=== PATIENT | male | born 1975 | race Two or more races ===

== ENCOUNTER 2021-10-09 13:28 | Emergency (ER) | payer OTHER, SELFPAY ==
[2021-10-09 16:03] VITALS: BP 118/88; PULSE 78; RESP 18; TEMP 37.2; O2SAT 97; BMI 31.0
--- NOTE | 2021-10-09 16:28 | ED.GENADULT ---
HPI - General Adult General Chief complaint: General Medical Stated complaint: SORE THROAT HEADACHE FEVER Time Seen by Provider: 10/09/21 16:27 Source: patient and family Mode of arrival: ambulatory Limitations: no limitations History of Present Illness HPI narrative: 46-year-old male came in for evaluation of sore throat, runny nose, allergy like symptoms. Symptoms started about week ago, no sick contact, patient received 2 vaccinations for COVID this year, declined any fever or chills. No coughing. Related Data Allergies Allergy/AdvReac Type Severity Reaction Status Date / Time No Known Allergies Allergy Verified 10/09/21 16:08 Review of Systems Review of Systems: All other systems are reviewed and are negative Constitutional: Reports as per HPI and Reports no additional constitutional complaints Eyes: Reports as per HPI and Reports no additional eye complaints Reports system reviewed and no additional complaints, except as documented Cardiovascular: Reports as per HPI and Reports no additional cardiovascular complaints Respiratory: Reports as per HPI and Reports no additional respiratory complaints Gastrointestinal: Reports as per HPI and Reports no additional gastrointestinal complaints Genitourinary: Reports no additional female genitourinary complaints Musculoskeletal: Reports no additional musculoskeletal complaints Skin/Breast: Reports system reviewed and no additional complaints, except as docu Psychiatric: Reports no additional psychiatric complaints Endocrine: Reports no additional endocrine complaints Hematologic/Lymphatic: Reports no additional hematologic/lymphatic complaints Allergic/Immunologic: Reports no additional allergic/immunologic complaints Reports system reviewed and no additional complaints, except as documented and Reports Abnormal speech present [facility] Social History Social History Advance Directives: No Advance Directives Information Provided: No Physical Exam Vital Signs: Vital Signs: Last Vital Signs Temp 99 F 10/09/21 16:03 Pulse 78 10/09/21 16:03 Resp 18 10/09/21 16:03 BP 118/88 10/09/21 16:03 Pulse Ox 97 10/09/21 16:03 Body Mass Index 31.0 Vital signs have been reviewed as appeared to be correct. Blood pressure normal. Heart rate normal. Respiration rate normal. Temperature normal. Oxygen saturation normal. Appearance: Alert. Oriented X3. No acute distress. Head: Normal external exam. Normocephalic. Atraumatic. No Bennett signs noted. No raccoon eyes noted Eyes: PERRLA. EOMI. Conjunctiva and sclera normal. Eyelids normal. ENT: TM's Normal. Pharynx normal. Uvula midline. Moist mucous membranes. No trismus noted. No drooling noted. No muffled voice noted. Neck: Normal inspection. Neck supple. FROM. No adenopathy. Thyroid Normal. No meningeal signs. No neck mass noted. CVS: Normal heart rate and rhythm. Heart sound normal. No murmurs noted. Pulses normal throughout. Respiratory: No respiratory distress. Painless inspiration. Breath sounds normal. No wheezes/rales/rhonchi noted. Chest nontender. No accessory muscle usage noted or decreased air movement noted. Abdomen: Soft and nontender. Bowel sounds normal in all 4 quadrants. No distention noted. No organomegaly noted. No visible injury noted. Back: No CVA tenderness. Full range of motion noted. Skin: Skin warm and dry. Normal skin color. Normal skin turgor. No rashes/lesions/lacerations noted. Extremities: No lower extremity edema. Extremities exhibit normal range of motion. Extremities nontender. Neuro: Oriented X 3. Cranial nerve exam: II-XII are grossly intact No motor deficit. No sensory deficit. Reflexes normal. Course Course Course Narrative: Assessment and plan. 46-year-old male came in with runny nose, sore throat, patient is known to have environmental allergies that he developed every year when the weather changes. Will reassure and follow-up with PCP. Discharge Plan Discharge Clinical Impression: Pharyngitis Patient Disposition: Home, Self-Care Instructions: Pharyngitis (ED) Referrals: Physician,Jabari Geronimo [Physician] - 2 days
[2021-10-09 16:45] LABS: Strep A Nucleic Acid Negative (Negative)
== END 2021-10-09 17:31 | disposition home or self-care (01) ==
PROVIDERS: Emergency Provider Emergency Medicine
DX: J02.9 Acute pharyngitis, unspecified (principal)
CPT/HCPCS: 36415; 87651; 99283

== ENCOUNTER 2022-03-01 23:25 | Emergency (ER) | payer OTHER, SELFPAY ==
[2022-03-01 23:38] VITALS: BP 118/73; PULSE 87; RESP 15; TEMP 36.8; O2SAT 99; BMI 31.8
[2022-03-02 00:03] LABS: MANUAL DIFF FLAG NO
[2022-03-02 00:07] LABS: Basophils Percent Auto 0.5 % (0-2); Eosinophils Absolute Auto 0.7 X10*3/uL (0.0-0.4); Eosinophils Percent Auto 9.4 % (0-4); Hematocrit 43.5 % (42.0-52.0); Hemoglobin 14.3 g/dl (14.0-18.0); Imm Gran Abs Auto 0.02 X10*3/uL (0.00-0.03); Imm Gran Pct Auto 0.3 % (0.0-0.4); Lymphocytes Absolute Auto 2.5 X10*3/uL (1.2-4.9); Lymphocytes Percent Auto 32.4 % (20-40); Mean Corpuscular HGB Conc 32.9 g/dl (31.0-36.0); Mean Corpuscular Hemoglobin 29.5 pg (27.0-33.0); Mean Corpuscular Volume 89.7 fL (80.0-98.0); Mean Platelet Volume 10.4 fL (9.4-12.4); Monocytes Absolute Auto 0.8 X10*3/uL (0.1-1.2); Monocytes Percent Auto 10.3 % (2-11); Neutrophils Absolute Auto 3.7 x10*3/uL (2.0-8.3); Neutrophils Percent Auto 47.1 % (45-73); Platelet Count 264 X10*3/uL (160-400); Red Blood Count 4.85 X10*6/uL (4.60-5.80); Red Cell Distribution Width 13.2 % (11.0-16.0); White Blood Count 7.8 X10*3/uL (4.8-10.8)
[2022-03-02 00:18] LABS: COVID-19 Test Positive (Negative); IDNOW Serial# 55D5AD1C
[2022-03-02 00:21] LABS: Influenza A Negative (Negative); Influenza B2 Negative (Negative)
[2022-03-02 00:23] LABS: Alanine Aminotransferase 44 U/L (0-40); Albumin Level 3.9 g/dL (3.5-5.0); Alkaline Phosphatase 89 U/L (39-117); Anion Gap 13 (12-20); Aspartate Amino Transferase 29 U/L (5-37); Bilirubin Total 0.3 mg/dL (0.0-1.0); Blood Urea Nitrogen 14 mg/dL (9-16); Calcium 9.1 mg/dL (8.4-10.2); Carbon Dioxide 26 mmol/L (22-29); Chloride 108 mmol/L (96-108); Creatinine Clr Calc Pharmacy 107.5; Estimated Glomerular Filt Rate > 60; Glucose Random 114 mg/dL (60-115); Potassium 3.9 mmol/L (3.3-5.1); Sodium 143 mmol/L (135-145)
[2022-03-02 01:00] VITALS: BP 119/72; PULSE 74; RESP 22; O2SAT 97
--- NOTE | 2022-03-02 01:50 | ED_ITS ---
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 He patient also states that he felt feverish and had body aches. He otherwise denies shortness of breath, GI or symptoms. Related Data Allergies Allergy/AdvReac Type Severity Reaction Status Date / Time No Known Allergies Allergy Verified 10/09/21 16:08 Review of Systems Review of Systems: Pertinent positives and negatives as stated in HPI 10 point review of systems is otherwise negative. [facility] Past Medical History Source: nursing notes reviewed Social History Social History Advance Directives: No Advance Directives Information Provided: Yes Physical Exam ED Vital Signs: Vital Signs - 24 hr 03/01/22 23:38 03/02/22 01:00 Temperature 98.3 F Pulse Rate 87 74 Respiratory Rate 15 22 H Blood Pressure 118/73 119/72 Pulse Oximetry 99 97 BMI result Body Mass Index 31.8 VITAL SIGNS: Reviewed. GENERAL: Well developed, well nourished, in no acute distress. HEAD: Normocephalic/atraumatic EYES: PERRLA, EOMI EARS: Ext canals without abnormality, TMs non-bulging and non-erythematous NOSE: Nares patent bilateral OROPHARYNX: no oral lesions noted, posterior pharynx clear and non-erythematous without noted tonsillar enlargement/erythema/exudates NECK: Supple, no adenopathy LUNGS: Normal breath sounds. No adventitious sounds or accessory muscle use. SpO2<99> CARDIOVASCULAR: Regular rate and rhythm without noted murmurs ABDOMEN: Soft, non-tender, non-distended with bowel sounds. SKIN: Inspection of the skin reveals no rashes NEUROLOGIC: Alert and oriented x 4. Strength and sensation to light touch were grossly intact x 4. Course Course Course Narrative: 46-year-old male with history and clinical presentation consistent with viral syndrome and on review of all investigations there are no acute findings other than patient being COVID-19 positive. Patient was informed of all findings and is discharged home in stable condition with instructions to self quarantine and he is not tachypneic, tachycardic, nor shortness of breath and patient is oxygenating well on room air. Medical Decision Making Lab Data Result diagrams: 03/01/22 23:55 03/01/22 23:55 Labs: Lab Results 03/01/22 03/01/22 03/01/22 Range/Units 23:55 23:55 23:55 WBC 7.8 (4.8-10.8) X10*3/uL RBC 4.85 (4.60-5.80) X10*6/uL Hgb 14.3 (14.0-18.0) g/dl Hct 43.5 (42.0-52.0) % MCV 89.7 (80.0-98.0) fL MCH 29.5 (27.0-33.0) pg MCHC 32.9 (31.0-36.0) g/dl RDW 13.2 (11.0-16.0) % Plt Count 264 (160-400) X10*3/uL MPV 10.4 (9.4-12.4) fL Immature Gran % (Auto) 0.3 (0.0-0.4) % Neut % (Auto) 47.1 (45-73) % Lymph % (Auto) 32.4 (20-40) % Bulloch % (Auto) 10.3 (2-11) % Eos % (Auto) 9.4 H (0-4) % Baso % (Auto) 0.5 (0-2) % Lymph # (Auto) 2.5 (1.2-4.9) X10*3/uL Bulloch # (Auto) 0.8 (0.1-1.2) X10*3/uL Eos # (Auto) 0.7 H (0.0-0.4) X10*3/uL Baso # (Auto) 0.0 (0.0-0.2) X10*3/uL Abs Immat Gran (auto) 0.02 (0.00-0.03) X10*3/uL Absolute Neuts (auto) 3.7 (2.0-8.3) x10*3/uL Absolute Nucleated RBC 0.000 (0.0-0.012) X10*3/uL Nucleated RBC % (auto) 0.0 (0.0-0.2) /100WBC Sodium (135-145) mmol/L Potassium (3.3-5.1) mmol/L Chloride (96-108) mmol/L Carbon Dioxide (22-29) mmol/L Anion Gap (12-20) BUN (9-16) mg/dL Creatinine (0.5-1.4) mg/dL Estim Creat Clear Calc Estimated GFR Random Glucose (60-115) mg/dL Calcium (8.4-10.2) mg/dL Total Bilirubin (0.0-1.0) mg/dL AST (5-37) U/L ALT (0-40) U/L Alkaline Phosphatase (39-117) U/L Total Protein (6.5-8.0) g/dL Albumin (3.5-5.0) g/dL COVID-19 (HETAL) Positive A (Negative) COVID-19 Clin Com See Note Influenza Type A (CARLOS) Negative (Negative) Influenza Type B (CARLOS) Negative (Negative) Influenza A & B Note See Note 03/01/22 Range/Units 23:55 WBC (4.8-10.8) X10*3/uL RBC (4.60-5.80) X10*6/uL Hgb (14.0-18.0) g/dl Hct (42.0-52.0) % MCV (80.0-98.0) fL MCH (27.0-33.0) pg MCHC (31.0-36.0) g/dl RDW (11.0-16.0) % Plt Count (160-400) X10*3/uL MPV (9.4-12.4) fL Immature Gran % (Auto) (0.0-0.4) % Neut % (Auto) (45-73) % Lymph % (Auto) (20-40) % Bulloch % (Auto) (2-11) % Eos % (Auto) (0-4) % Baso % (Auto) (0-2) % Lymph # (Auto) (1.2-4.9) X10*3/uL Bulloch # (Auto) (0.1-1.2) X10*3/uL Eos # (Auto) (0.0-0.4) X10*3/uL Baso # (Auto) (0.0-0.2) X10*3/uL Abs Immat Gran (auto) (0.00-0.03) X10*3/uL Absolute Neuts (auto) (2.0-8.3) x10*3/uL Absolute Nucleated RBC (0.0-0.012) X10*3/uL Nucleated RBC % (auto) (0.0-0.2) /100WBC Sodium 143 (135-145) mmol/L Potassium 3.9 (3.3-5.1) mmol/L Chloride 108 (96-108) mmol/L Carbon Dioxide 26 (22-29) mmol/L Anion Gap 13 (12-20) BUN 14 (9-16) mg/dL Creatinine 1.00 (0.5-1.4) mg/dL Estim Creat Clear Calc 107.5 Estimated GFR > 60 Random Glucose 114 (60-115) mg/dL Calcium 9.1 (8.4-10.2) mg/dL Total Bilirubin 0.3 (0.0-1.0) mg/dL AST 29 (5-37) U/L ALT 44 H (0-40) U/L Alkaline Phosphatase 89 (39-117) U/L Total Protein 7.0 (6.5-8.0) g/dL Albumin 3.9 (3.5-5.0) g/dL COVID-19 (HETAL) (Negative) COVID-19 Clin Com Influenza Type A (CARLOS) (Negative) Influenza Type B (CARLOS) (Negative) Influenza A & B Note Discharge Plan Discharge Clinical Impression: Viral syndrome, Lab test positive for detection of COVID-19 virus Patient Disposition: Home, Self-Care Instructions: Viral Syndrome (ED), COVID-19 (Coronavirus Disease 2019) (ED) Additional Instructions: 1. Recomendar Tylenol/ibuprofeno de venta delmer seg?n sea necesario para temperaturas superiores a 100.4, almaz corporales, almaz de jerardo. 2. Aumentar la hidrataci?n fluida, especialmente con agua. 3. Debe ponerse en cuarentena makenna los pr?ximos 14 d?as y seguir todas las pautas estatales y federales ya que le soares diagnosticado COVID 19. Regrese a la lisa de emergencias si los s?ntomas empeoran. Print Language: Mosotho
[2022-03-02] MEDS: Ketorolac Tromethamine 15 MG/ML VIAL IM (02:10)
[2022-03-02] MEDS: Acetaminophen 325 MG TABLET 975 MG PO (02:11)
== END 2022-03-02 02:28 | disposition home or self-care (01) ==
PROVIDERS: Emergency Provider Student in an Organized Health Care Education/Training Program
DX: U07.1 COVID-19 (principal); B34.9 Viral infection, unspecified; R51.9 Headache, unspecified
CPT/HCPCS: 36415; 80053; 85025; 87502; 87635; 96372; 99283; 99284; J1885

== ENCOUNTER 2022-03-12 22:15 | Emergency (ER) | payer OTHER, SELFPAY ==
--- NOTE | ~2022-03-12 | XR_ITS ---
EXAMINATION: XR CHEST CLINICAL INFORMATION: Shortness of breath COMPARISON: None TECHNIQUE: 2 views of the chest were obtained. FINDINGS: Normal symmetric lung volumes. Left basilar subsegmental atelectasis. No parenchymal consolidation. No pleural effusion. No pneumothorax. Cardiomediastinal silhouette and pulmonary vascularity are within normal limits. No acute osseous abnormalities. XR/XR chest 2V IMPRESSION: No acute findings
[2022-03-13 01:31] VITALS: BP 125/71; PULSE 71; RESP 18; O2SAT 99; BMI 31.7
[2022-03-13 01:57] LABS: COVID-19 Test Negative (Negative)
--- NOTE | 2022-03-13 02:34 | ED.URI ---
HPI - URI/Sore Throat General Chief Complaint: Upper Respiratory Symptoms Stated Complaint: +covid 4/1 headache body aches Time Seen by Provider: 03/13/22 02:34 Source: patient Mode of arrival: ambulatory Limitations: language barrier History of Present Illness HPI Narrative: History obtained with translater. Patient is COVID positive on March, patient is vaccinated with pfizer. Patient had headache, sore throat and cough. Patient is not feeling better yet. MD elicited complaint: cough and sore throat Onset (ago): day(s) Consistency: constant Severity: mild Associated symptoms: denies other symptoms Related Data Allergies Allergy/AdvReac Type Severity Reaction Status Date / Time No Known Allergies Allergy Verified 10/09/21 16:08 Review of Systems Constitutional: Constitutional: Reports no additional constitutional complaints Eyes: Eyes: Reports no additional eye complaints ENT: Denies dizziness Cardiovascular: Cardiovascular: Reports no additional cardiovascular complaints Respiratory: Respiratory: Reports as per HPI Gastrointestinal: Gastrointestinal: Reports no additional gastrointestinal complaints Musculoskeletal: Musculoskeletal: Reports no additional musculoskeletal complaints Integumentary/Breasts: Skin/Breast: Denies rash Neurologic: Reports system reviewed and no additional complaints, except as documented, Denies dizziness and Denies Sensory deficit (Neuro) Psychiatric: Psychiatric: Denies anxiety PMFSH Social History Social History Advance Directives: No Physical Exam Vital Signs: Vital Signs: Last Vital Signs Pulse 71 03/13/22 01:31 Resp 18 03/13/22 01:31 BP 125/71 03/13/22 01:31 Pulse Ox 99 03/13/22 01:31 BMI result Body Mass Index 31.7 Const: General: healthy appearing Nutritional Appearance: average body habitus Orientation/consciousness: oriented to person and patient oriented x3 Limitations: no limitations HEENT: Head: Yes normal to inspection Ears: external ears normal General nose exam: Normal external nose present Mouth: Normal oral and palatal mucosa present and oropharynx normal Throat: Yes posterior oropharynx normal Eyes: General: appearance normal, both eyes and all related structures Neck: Other: supple Neck: Yes normal visual inspection Chest: Chest palpation & inspection: normal inspection of the chest Resp: Auscultation: clear to auscultation bilaterally Cardio: Jugular venous distension: no JVD Rate: regular rate Rhythm: regular rhythm Heart sounds: S1 normal heart sound present and S2 normal heart sound present GI: Inspection: Yes normal to inspection Palpation (GI): Soft to palpation, nontender and No hepatosplenomegaly present Auscultation: normal bowel sounds : General: Yes no CVA tenderness Back/Spine/Pelvis: Back: no CVA tenderness Skin: General skin exam: no rashes or lesions noted Neuro: General: oriented to person and patient oriented x3 Cranial nerves: Yes CN's II-XII intact bilaterally Motor exam (neuro): 5/5 motor strength present throughout Sensory Exam: No Sensory deficit (Neuro) Extrem: General: Yes normal to inspection Psych: Appearance: grossly normal Course Reevaluation(s) Reevaluation #1: patient with normal vitals and physical exam, xaray is negative. will encourage fluids and tylenol and motrin as needed Time: 02:41 MDM - URI/Sore Throat Lab Data Labs: Lab Results 03/13/22 Range/Units 01:16 COVID-19 (HETAL) Negative (Negative) COVID-19 Clin Com See Note Imaging Data Chest x-ray: Radiologist's impression: FINDINGS: Normal symmetric lung volumes. Left basilar subsegmental atelectasis. No parenchymal consolidation. No pleural effusion. No pneumothorax. Cardiomediastinal silhouette and pulmonary vascularity are within normal limits. No acute osseous abnormalities. XR/XR chest 2V IMPRESSION: No acute findings Discharge Plan Discharge Clinical Impression: COVID-19 Patient Disposition: Home, Self-Care Instructions: COVID-19 (Coronavirus Disease 2019) (ED) Referrals: Physician,Jabari J [Primary Care Provider] - 1 week Stand Alone Forms: Work/School Release Interventions: LWBS Worksheet Last Done: 03/12/22 23:55
== END 2022-03-13 02:48 | disposition home or self-care (01) ==
PROVIDERS: Emergency Provider Emergency Medicine
DX: U07.1 COVID-19 (principal)
CPT/HCPCS: 71046; 87635; 99283

== ENCOUNTER 2022-04-24 00:41 | Emergency (ER) | payer OTHER, SELFPAY ==
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
[2022-04-24 01:04] VITALS: BP 124/75; PULSE 74; RESP 18; TEMP 36.6; O2SAT 97; BMI 32.3
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
[2022-04-24 01:40] VITALS: BP 106/66; PULSE 69; RESP 20; O2SAT 97
[2022-04-24] MEDS: Lidocaine 4 % Patch ADH..PATCH 1 PATCH TRANSDERMA (02:23)
[2022-04-24] MEDS: Ibuprofen 600 MG TABLET PO (02:25)
== END 2022-04-24 03:21 | disposition home or self-care (01) ==
PROVIDERS: Emergency Provider Emergency Medicine
DX: S39.012A Strain of muscle, fascia and tendon of lower back, initial encounter (principal); S13.4XXA Sprain of ligaments of cervical spine, initial encounter; V43.52XA Car driver injured in collision with other type car in traffic accident, initial encounter; Y93.89 Activity, other specified; Y92.414 Local residential or business street as the place of occurrence of the external cause; Y99.9 Unspecified external cause status
CPT/HCPCS: 72125; 99284

== ENCOUNTER 2022-07-31 11:27 | Emergency (ER) | payer OTHER, SELFPAY ==
[2022-07-31 11:42] VITALS: BP 112/55; PULSE 80; RESP 18; TEMP 36.9; O2SAT 98; BMI 26.6
--- NOTE | 2022-07-31 12:20 | ED.SKABFB ---
HPI - Skin/Abscess/Foreign Bdy General Chief complaint: Skin/Abscess/Foreign Body Stated complaint: Cyst on R foot? Time Seen by Provider: 07/31/22 12:19 Source: patient Mode of arrival: ambulatory Limitations: no limitations History of Present Illness HPI narrative: 47 yo male presents to the ER for evaluation of right groin pimple for the last 2 days. He states the area is tender and swollen. He denies any drainage. He denies any fever or chills. His was having him put warm compresses on it yesterday but he had no improvement in the pain or swelling. MD complaint: abscess/boil Onset (ago): day(s) (2) Tetanus up to date: yes Location: RLE Severity: moderate Severity scale (1-10): 5 Quality: aching Exacerbating factors: none Context: none Treatments prior to arrival: none Related Data Previous Rx's Medication Instructions Recorded cyclobenzaprine 10 mg tablet 10 mg PO TID PRN muscle spasm #14 04/24/22 tabs ibuprofen 600 mg tablet 600 mg PO Q6H PRN pain #30 tabs 04/24/22 lidocaine 4 % topical patch 1 patch topical DAILY PRN pain #10 04/24/22 ea cephalexin 500 mg capsule 500 mg PO QID 7 days #28 caps 07/31/22 ibuprofen 600 mg tablet 600 mg PO Q8H PRN pain #10 tabs 07/31/22 Allergies Allergy/AdvReac Type Severity Reaction Status Date / Time No Known Allergies Allergy Verified 10/09/21 16:08 Review of Systems Review of Systems: Constitutional: No Fever, No Chills Cardiovascular: No Chest Pain, No SOB Respiratory: No Cough, No Sputum Gastrointestinal: No Nausea, No Vomiting, No abdominal Pain Musculoskeletal: No joint pain, No Myalgias Skin: + Skin Lesions, No rash Neuro: No Weakness, No Numbness Psych: No Anxiety/Panic, No Depression Heme/Lymph: No Bruising, No Lymphadenopathy PMFSH Past Medical History Medical History No pertinent past medical history Social History Social History (Updated 04/24/22 @ 02:05 by Nasra Landry DO) Alcohol intake: never Patient Tobacco Use Status: Never used Tobacco Advance Directives: No Advance Directives Information Provided: No Physical Exam Vital Signs: Vital Signs: Last Vital Signs Temp 98.4 F 07/31/22 11:42 Pulse 80 07/31/22 11:42 Resp 18 07/31/22 11:42 BP 112/55 L 07/31/22 11:42 Pulse Ox 98 07/31/22 11:42 O2 Del Method 07/31/22 11:42 BMI result Body Mass Index 26.6 Appearance: Alert. Oriented X3. No acute distress. HEENT: normal inspection CVS: Normal heart rate and rhythm. Pulses normal. Respiratory: No respiratory distress. Skin: Skin warm and dry. Normal skin color. Normal skin turgor. No rashes. Extremities: Proximal inner right thigh with approximately 1 cm swollen, tender area with induration, no fluctuance. Multiple swollen and inflamed hair follicles surrounding. No palpable abscess. Neuro: Oriented X 3. Grossly normal, nonfocal Course Course Course Narrative: 47-year-old male presents to the ER for evaluation of a ?pimple? in his right groin. On examination there is a small area of induration without fluctuance. Not amenable to incision and drainage today. There is surrounding folliculitis. Will treat with oral Keflex, topical warm soaks. He is stable for discharge home. He will follow-up with his PCP as needed. Stable for DC home. Discharge Plan Discharge Clinical Impression: Folliculitis Patient Disposition: Home, Self-Care Instructions: Folliculitis (ED) Additional Instructions: Use warm compresses several times per day to the area Take the prescribed antibiotics as directed, complete the entire course. Use antibacterial soap to the area, like Dial. This can be found at the pharmacy or grocery store If you develop new or worsening symptoms call 911 or come back to the ER for further evaluation. Prescriptions: New cephalexin 500 mg capsule 500 mg PO QID 7 Days Qty: 28 0RF ibuprofen 600 mg tablet 600 mg PO Q8H PRN (Reason: pain) Qty: 10 0RF No Action cyclobenzaprine 10 mg tablet 10 mg PO TID PRN (Reason: muscle spasm) Qty: 14 0RF lidocaine 4 % adhesive patch,medicated 1 patch topical DAILY PRN (Reason: pain) Qty: 10 0RF Rx Instructions: may leave on for up to 12 hrs ibuprofen 600 mg tablet 600 mg PO Q6H PRN (Reason: pain) Qty: 30 0RF Stand Alone Forms: Work/School Release Interventions: ED Discharge Assessment Last Done: 07/31/22 12:40 Discharge Date/Time: 07/31/22 12:40
== END 2022-07-31 12:40 | disposition home or self-care (01) ==
PROVIDERS: Emergency Provider Emergency Medicine
DX: L73.8 Other specified follicular disorders (principal); R10.31 Right lower quadrant pain
CPT/HCPCS: 99282; 99283

== ENCOUNTER 2023-06-02 19:23 | Emergency (ER) | payer OTHER, SELFPAY ==
[2023-06-02 19:24] VITALS: BP 116/67; PULSE 73; RESP 18; TEMP 36.4; O2SAT 98; BMI 25.7
--- NOTE | 2023-06-02 19:27 | ED.GENADULT ---
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 Full, swollen area to the inferior aspect of the right buttocks Denies any fevers or chills Denies any wounds to the area He is not diabetic Related Data Previous Rx's Medication Instructions Recorded cyclobenzaprine 10 mg tablet 10 mg PO TID PRN muscle spasm #14 04/24/22 tabs ibuprofen 600 mg tablet 600 mg PO Q6H PRN pain #30 tabs 04/24/22 lidocaine 4 % topical patch 1 patch topical DAILY PRN pain #10 04/24/22 ea cephalexin 500 mg capsule 500 mg PO QID 7 days #28 caps 07/31/22 ibuprofen 600 mg tablet 600 mg PO Q8H PRN pain #10 tabs 07/31/22 cephalexin 500 mg capsule 500 mg PO QID #28 caps 06/03/23 Allergies Allergy/AdvReac Type Severity Reaction Status Date / Time No Known Allergies Allergy Verified 10/09/21 16:08 Review of Systems Integumentary/Breasts: Skin/Breast: Reports other (Reports cyst your right buttocks) PMFSH Past Medical History Medical History No pertinent past medical history Social History Social History (Updated 04/24/22 @ 02:05 by Nasra aLndry DO) Alcohol intake: never Patient Tobacco Use Status: Never used Tobacco Advance Directives: No Advance Directives Information Provided: No Physical Exam ED Vital Signs: Vital Signs - 24 hr 06/02/23 19:24 06/02/23 22:17 Temperature 97.5 F Pulse Rate 73 58 Respiratory Rate 18 20 Blood Pressure 116/67 110/65 Pulse Oximetry 98 100 Oxygen Delivery Method Room Air Room Air BMI result Body Mass Index 25.7 Const General: healthy appearing, comfortable, no acute distress, alert and awake Nutritional Appearance: well nourished Orientation/consciousness: patient oriented x3 HENMT Head: Yes normocephalic and Yes atraumatic Eyes Eyelids: Yes eyelids normal Conjunctivae: conjunctivae normal Sclerae: sclerae normal Corneas: corneas normal Pupils: Equal, round and reactive pupils present EOM: EOMs intact bilaterally Neck Neck: Yes full ROM Resp Effort & Inspection: normal respiratory effort, able to speak in complete sentences and not labored Cardio Rate: regular rate Rhythm: regular rhythm Skin Other: Patient is a 2 x 2 cm area of induration to the inferior aspect of the right buttocks. No significant erythema, there is some darkened skin overlying. No open wounds or purulent drainage, this area is tender to palpation. General skin exam: elasticity normal Neuro General: patient oriented x3 Cranial nerves: Yes Equal, round and reactive pupils present and Yes Bilaterally intact EOM present Cognition (Neuro): normal cognition Extrem Other: Moving all extremities well without any obvious deformities Course Course Course Narrative: RME: 47 yold male presents to the ED for Right thigh cysts/mass that is painful and has been present for 1 weeks. patient states no fever or chills. Medications Administered Discontinued Medications Generic Name Dose Route Start Last Admin Trade Name Freq PRN Reason Stop Dose Admin Cephalexin HCl 500 mg 06/03/23 01:30 06/03/23 01:50 Cephalexin 500 Mg Capsule PO 06/03/23 01:31 500 mg ONCE ONE Administration Lidocaine/Epinephrine 20 ml 06/03/23 01:14 06/03/23 01:51 Lidocaine Hcl 1%/Epi 1:100,000 10 Ml Vial INFILTRATI 06/03/23 01:15 20 ml ONCE ONE Administration Procedures Abscess I/D Site: other (Right lower buttocks) Side (if applicable): right Local Anesthetic: lidocaine 1% and with epi Amount of anesthesia used (mL): 3 Technique: needle aspiration Amount of fluid expressed (mL): 0 Medical Decision Making Medical Decision Making [facility] Narrative: Patient appears to have a developing cellulitis/abscess. Does not appear amenable to incision and drainage. I offered to attempt needle aspiration and proceed with I and D if I was able to aspirate fluid. Unfortunately I was unable to aspirate any fluid. The patient was discharged antibiotics and warm compresses. Differential Diagnosis Abscess Cellulitis Phlegmon Sebaceous cyst Discharge Plan Discharge Clinical Impression: Cellulitis Patient Disposition: Home, Self-Care Instructions: Cellulitis (ED) Additional Instructions: Take cephalexin 4 times daily for the next 7 days Apply warm compresses every 4 hours for 10-15 minutes Use ibuprofen or Tylenol for pain Return for new or worsening symptoms Prescriptions: New cephalexin 500 mg capsule 500 mg PO QID Qty: 28 0RF No Action cephalexin 500 mg capsule 500 mg PO QID 7 Days Qty: 28 0RF ibuprofen 600 mg tablet 600 mg PO Q8H PRN (Reason: pain) Qty: 10 0RF cyclobenzaprine 10 mg tablet 10 mg PO TID PRN (Reason: muscle spasm) Qty: 14 0RF lidocaine 4 % adhesive patch,medicated 1 patch topical DAILY PRN (Reason: pain) Qty: 10 0RF Rx Instructions: may leave on for up to 12 hrs ibuprofen 600 mg tablet 600 mg PO Q6H PRN (Reason: pain) Qty: 30 0RF Stand Alone Forms: Work/School Release Interventions: ED Discharge Assessment Last Done: 06/03/23 01:53 Discharge Date/Time: 06/03/23 01:54
[2023-06-02 22:17] VITALS: BP 110/65; PULSE 58; RESP 20; O2SAT 100
== END 2023-06-03 01:54 | disposition home or self-care (01) ==
PROVIDERS: Emergency Provider Emergency Medicine
DX: L03.317 Cellulitis of buttock (principal); L72.8 Other follicular cysts of the skin and subcutaneous tissue
CPT/HCPCS: 10060; 99282; 99284

== ENCOUNTER 2023-07-07 17:20 | Emergency (ER) | payer OTHER, SELFPAY ==
--- NOTE | 2023-07-07 17:29 | ED.GENADULT ---
HPI - General Adult General Chief complaint: Dental/Oral Stated complaint: Tooth pain Time Seen by Provider: 07/07/23 17:35 Source: patient Mode of arrival: ambulatory Limitations: no limitations History of Present Illness HPI narrative: Patient is a 48 year old assigned male at with no reported medical history presenting to the emergency department today with dental pain. Patient states that last night he began to have dental pain on the left side of his mouth that has not improved. Patient denies any dizziness, lightheadedness, abdominal pain, nausea, vomiting, fever, chills, blurry vision, double vision, loss of vision, chest pain, difficulty breathing, shortness of breath, back pain, night sweats, pain with urination, increased urinary frequency, increased urinary urgency, blood in his urine or stool, syncope or a near syncopal episode, recent trauma or falls, bowel incontinence, bladder incontinence, bowel retention, bladder retention, or any other complaints at this time. Onset (ago): hour(s) Location: mouth and left Radiation: non-radiation Severity: mild Severity scale (1-10): 3 Quality: aching and dull Relieving factors: none Exacerbating factors: none Associated symptoms: denies other symptoms Treatments prior to arrival: none Related Data Previous Rx's Medication Instructions Recorded cyclobenzaprine 10 mg tablet 10 mg PO TID PRN muscle spasm #14 04/24/22 tabs ibuprofen 600 mg tablet 600 mg PO Q6H PRN pain #30 tabs 04/24/22 lidocaine 4 % topical patch 1 patch topical DAILY PRN pain #10 04/24/22 ea cephalexin 500 mg capsule 500 mg PO QID 7 days #28 caps 07/31/22 ibuprofen 600 mg tablet 600 mg PO Q8H PRN pain #10 tabs 07/31/22 cephalexin 500 mg capsule 500 mg PO QID #28 caps 06/03/23 chlorhexidine gluconate 0.12 % 15 ml buccal BID #118 mL 07/07/23 mouthwash (Peridex) naproxen 500 mg tablet 500 mg PO BID 7 days #14 tabs 07/07/23 penicillin V potassium 500 mg 500 mg PO BID 10 days #20 tabs 07/07/23 tablet Allergies Allergy/AdvReac Type Severity Reaction Status Date / Time No Known Allergies Allergy Verified 10/09/21 16:08 Review of Systems Constitutional: Constitutional: Reports no additional constitutional complaints, Denies chills, Denies fever(s) and Denies night sweats Eyes: Eyes: Reports no additional eye complaints, Denies blurry vision, Denies change in vision, Denies diplopia, Denies eye discharge, Denies loss of vision and Denies eye pain ENT: Denies dizziness and Reports mouth pain Cardiovascular: Cardiovascular: Reports no additional cardiovascular complaints, Denies chest pain, Denies lightheadedness, Denies Loss of Consciousness and Denies dyspnea Respiratory: Respiratory: Reports no additional respiratory complaints and Denies dyspnea Gastrointestinal: Gastrointestinal: Reports no additional gastrointestinal complaints, Denies abdominal pain, Denies melena, Denies hematochezia, Denies change in bowel habits and Denies change in stool character Genitourinary: Genitourinary: Reports no additional male genitourinary complaints, Denies hematuria, Denies oliguria, Denies difficulty urinating, Denies dysuria, Denies urinary frequency, Denies urinary hesitancy, Denies urinary incontinence and Denies urinary urgency Musculoskeletal: Musculoskeletal: Reports no additional musculoskeletal complaints, Denies numbness and Denies tingling Neurologic: Denies dizziness, Denies loss of vision, Denies numbness and Denies tingling Psychiatric: Psychiatric: Reports no additional psychiatric complaints Endocrine: Endocrine: Reports no additional endocrine complaints Hematologic/Lymphatic: Hematologic/Lymphatic: Reports no additional hematologic/lymphatic complaints Allergic/Immunologic: Allergic/Immunologic: Reports no additional allergic/immunologic complaints PMFSH Past Medical History Attestation statement: The following information was validated with the patient. Source: old records reviewed and nursing notes reviewed Medical History COVID-19 No pertinent past medical history Social History Social History Alcohol intake: never Patient Tobacco Use Status: Never used Tobacco Advance Directives: No Advance Directives Information Provided: No Physical Exam ED Vital Signs: Vital Signs - 24 hr 07/07/23 17:30 Temperature 98.1 F Pulse Rate 81 Respiratory Rate 18 Blood Pressure 116/63 Pulse Oximetry 98 Oxygen Delivery Method Room Air BMI result Body Mass Index 18.5 Const General: cooperative, no acute distress, alert and awake Nutritional Appearance: well nourished Orientation/consciousness: patient oriented x3 Limitations: no limitations HENMT Head: Yes normal to inspection and Yes atraumatic Ears: hearing grossly normal bilaterally and external ears normal General nose exam: Normal external nose present, no nasal discharge noted and no epistaxis Face and sinus: Yes normal facial exam, No abrasion and No laceration Mouth: Normal oral and palatal mucosa present, no drooling and no muffled voice Teeth and gingiva: poor dentition Teeth image: 1. pain, swelling, cracked 2. pain, swelling, cracked Eyes General: appearance normal, both eyes and all related structures Periorbital: periorbital findings normal Eyelids: Yes eyelids normal Conjunctivae: conjunctivae normal Pupils: Equal, round and reactive pupils present EOM: EOMs intact bilaterally Neck Neck: Yes normal visual inspection, Yes full ROM and Yes no lymphadenopathy Chest Chest palpation & inspection: normal inspection of the chest Resp Effort & Inspection: normal respiratory effort and able to speak in complete sentences GI Inspection: Yes normal to inspection Neuro General: patient oriented x3 and moves all extremities Cranial nerves: Yes Equal, round and reactive pupils present Cognition (Neuro): normal cognition Motor exam (neuro): 5/5 motor strength present throughout Sensory Exam: Normal double simultaneous stimulation for sensation Coordination: [id number] test normal Extrem General: Yes normal to inspection, Yes full ROM and Yes capillary refill normal Psych Appearance: grossly normal Mental Status: mental status grossly normal Affect: normal affect Attitude: cooperative Thought process: Normal thought process present Thought content: Normal thought content present Insight: Good insight present (Psych) Medical Decision Making Medical Decision Making MDM Narrative: Patient is a 48 year old assigned male at with no reported medical history presenting to the emergency department today with dental pain. Patient's physical exam was as noted in the physical exam portion of this chart. There was no brianna fluctuance to drain. I explained my physical exam findings to the patient. I answered all questions asked by the patient. I stressed the importance of the patient taking his medication as prescribed. I stressed the importance of the patient following up with his primary care provider and a dentist. I stressed the importance of the patient returning to the emergency department immediately if his symptoms were to worsen or if he were to develop any dizziness, shortness of breath, difficulty breathing, chest pain, blurry vision, loss of vision, nausea, vomiting, abdominal pain, fever, chills, back pain, or any other complaints. Patient verbalized agreement and understanding with this treatment plan and discharge. Differential Diagnosis Differential Diagnoses: The differential diagnosis associated with the presentation includes Poor dentition Dental abscess Prescription Management I considered prescription management with: Pain Medication (patient prescribed pain medication) and Antibiotic (patient prescribed an antibiotic) Discharge Plan Discharge Clinical Impression: Abscess, dental Patient Disposition: Home, Self-Care Instructions: Dental Abscess (ED) Additional Instructions: Follow up with your primary care provider and a dentist. Return to the emergency department immediately if your symptoms worsen or if you develop any dizziness, shortness of breath, difficulty breathing, chest pain, blurry vision, loss of vision, nausea, vomiting, abdominal pain, fever, chills, back pain, or any other complaints. Stoney un seguimiento con chandler proveedor de atenci?n primaria y un dentista. Regrese al departamento de emergencias de inmediato si leena s?ntomas empeoran o si presenta mareos, falta de aire, dificultad para respirar, dolor de pecho, visi?n borrosa, p?rdida de la visi?n, n?useas, v?mitos, dolor abdominal, fiebre, escalofr?os, dolor de espalda o cualquier otras quejas. Call or visit any of the clinics below to establish with a dentist: Llame o visite cualquiera de las cl?nicas a continuaci?n para establecer contacto con un dentista: [facility] [address] [place] [address] [facility] [address] [facility], [address] [facility] [address] [place] [address] [facility] [address] [place] [id number] [facility] [address] [place] [address] [place] [address] [place] [address] Prescriptions: New penicillin V potassium 500 mg tablet 500 mg PO BID 10 Days Qty: 20 0RF naproxen 500 mg tablet 500 mg PO BID 7 Days Qty: 14 0RF chlorhexidine gluconate [Peridex] 0.12 % mouthwash 15 ml buccal BID Qty: 118 0RF No Action cephalexin 500 mg capsule 500 mg PO QID 7 Days Qty: 28 0RF ibuprofen 600 mg tablet 600 mg PO Q8H PRN (Reason: pain) Qty: 10 0RF cyclobenzaprine 10 mg tablet 10 mg PO TID PRN (Reason: muscle spasm) Qty: 14 0RF lidocaine 4 % adhesive patch,medicated 1 patch topical DAILY PRN (Reason: pain) Qty: 10 0RF Rx Instructions: may leave on for up to 12 hrs ibuprofen 600 mg tablet 600 mg PO Q6H PRN (Reason: pain) Qty: 30 0RF cephalexin 500 mg capsule 500 mg PO QID Qty: 28 0RF Referrals: [facility]Provider Group] (Call to establish and follow up with a primary care provider. If you already have a primary care provider, please follow up with them. Llame para establecer y hacer un seguimiento con un proveedor de atenci?n primaria. Si ya tiene un proveedor de atenci?n primaria, stoney un seguimiento con ?l. ) [facility] [Provider Group] (Call to establish and follow up with a primary care provider. If you already have a primary care provider, please follow up with them. Llame para establecer y hacer un seguimiento con un proveedor de atenci?n primaria. Si ya tiene un proveedor de atenci?n primaria, stoney un seguimiento con ?l. ) [facility] [Provider Group] (Call to establish and follow up with a primary care provider. If you already have a primary care provider, please follow up with them. Llame para establecer y hacer un seguimiento con un proveedor de atenci?n primaria. Si ya tiene un proveedor de atenci?n primaria, stoney un seguimiento con ?l. ) Stand Alone Forms: Work/School Release Print Language: Serbian
[2023-07-07 17:30] VITALS: BP 116/63; PULSE 81; RESP 18; TEMP 36.7; O2SAT 98; BMI 18.5
== END 2023-07-07 17:38 | disposition home or self-care (01) ==
LOC: HO.ED 17:35
PROVIDERS: Emergency Provider Internal Medicine
DX: K04.7 Periapical abscess without sinus (principal)
CPT/HCPCS: 99282

== ENCOUNTER 2023-07-28 15:50 | Emergency (ER) | payer OTHER, SELFPAY ==
[2023-07-28 16:03] VITALS: BP 142/84; PULSE 94; RESP 20; TEMP 36.6; O2SAT 98; BMI 25.8
--- NOTE | 2023-07-28 16:03 | ED.URI ---
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 Denies fevers. Denies chest pain. Denies any nausea, vomiting, or diarrhea. He denies taking any jang-ypy-iobgind medications at home for his symptoms. MD elicited complaint: cough and sore throat Onset (ago): day(s) Consistency: constant Severity: mild Exacerbating factors: swallowing Relieving factors: nothing Context: sick contacts Associated symptoms: headache, nasal congestion, sore throat and cough Treatments prior to arrival: none Related Data Previous Rx's Medication Instructions Recorded cyclobenzaprine 10 mg tablet 10 mg PO TID PRN muscle spasm #14 04/24/22 tabs ibuprofen 600 mg tablet 600 mg PO Q6H PRN pain #30 tabs 04/24/22 lidocaine 4 % topical patch 1 patch topical DAILY PRN pain #10 04/24/22 ea cephalexin 500 mg capsule 500 mg PO QID 7 days #28 caps 07/31/22 ibuprofen 600 mg tablet 600 mg PO Q8H PRN pain #10 tabs 07/31/22 cephalexin 500 mg capsule 500 mg PO QID #28 caps 06/03/23 chlorhexidine gluconate 0.12 % 15 ml buccal BID #118 mL 07/07/23 mouthwash (Peridex) naproxen 500 mg tablet 500 mg PO BID 7 days #14 tabs 07/07/23 penicillin V potassium 500 mg 500 mg PO BID 10 days #20 tabs 07/07/23 tablet Allergies Allergy/AdvReac Type Severity Reaction Status Date / Time No Known Allergies Allergy Verified 07/28/23 16:06 Review of Systems Review of Systems: As per HPI. Yes all other systems are reviewed and are negative Constitutional: Constitutional: Reports as per HPI PMFSH Past Medical History Medical History COVID-19 No pertinent past medical history Social History Social History Alcohol intake: never Patient Tobacco Use Status: Never used Tobacco Advance Directives: No Advance Directives Information Provided: No Physical Exam Vital Signs: Vital Signs: Last Vital Signs Temp 97.8 F 07/28/23 16:03 Pulse 94 07/28/23 16:03 Resp 20 07/28/23 16:03 BP 142/84 H 07/28/23 16:03 Pulse Ox 98 07/28/23 16:03 O2 Del Method Room Air 07/28/23 16:03 BMI result Body Mass Index 25.8 Vital signs have been reviewed and appear to be correct. Blood pressure normal. Heart rate normal. Respiratory rate normal. Temperature normal. Oxygen saturation normal. Const: General: cooperative, healthy appearing and no acute distress Orientation/consciousness: oriented to person, oriented to place, oriented to time and patient oriented x3 Limitations: no limitations HEENT: Head: Yes normocephalic and Yes atraumatic Ears: external ears normal General nose exam: Normal external nose present Face and sinus: Yes face symmetric Mouth: oropharynx normal and moist mucous membranes Throat: No posterior oropharynx normal (Erythematous, no edema or exudate), Yes uvula midline, No uvular edema and Yes cobblestoning Eyes: Pupils: Equal, round and reactive pupils present Neck: Neck: Yes normal visual inspection and Yes supple Resp: Effort & Inspection: normal respiratory effort and able to speak in complete sentences Auscultation: clear to auscultation bilaterally Cardio: Rate: regular rate Rhythm: regular rhythm Heart sounds: S1 normal heart sound present and S2 normal heart sound present GI: Palpation (GI): Soft to palpation and nontender Auscultation: normoactive bowel sounds : General: Yes no CVA tenderness Back/Spine/Pelvis: Back: no CVA tenderness Skin: General skin exam: elasticity normal and turgor normal Neuro: General: oriented to person, oriented to place, oriented to time, patient oriented x3, moves all extremities, no focal motor deficits and CN's II-XI intact bilaterally Cranial nerves: Yes Equal, round and reactive pupils present Cognition (Neuro): normal cognition Extrem: General: Yes full ROM, Yes no pedal edema and Yes no calf tenderness Psych: Mental Status: mental status grossly normal Affect: normal affect Thought process: Normal thought process present Course Course Course Narrative: This is an RME: Additional HPI, ROS, PE not included below will be deferred to primary provider. Patient is a 48-year-old male who presents to the emergency department with complaints of headache, fatigue x 3 days, productive cough, mild shortness of breath. Reports known sick contacts at work. Headache is unrelieved with acetaminophen Plan: COVID-19 testing Medical Decision Making Medical Decision Making [facility] Narrative: Patient is a 48-year-old Sami-speaking male presenting to the emergency department with 3 days of fatigue, headache, sore throat, cough. On exam patient is awake, A+Ox3, VS WNL, afebrile, normal neurological exam without focal deficits, mild erythema to posterior oropharynx, no edema or exudate, lung sounds clear throughout. Given reported symptoms and physical exam findings, initial differential includes COVID, influenza, strep pharyngitis, viral pharyngitis, viral illness. Do not suspect pneumonia. COVID, flu, and strep swabs all negative, patient updated on results. Discussed with patient that symptoms are likely viral and should resolve on their own rest and fluids. Advised him to use Tylenol and ibuprofen as needed for discomfort, ensure adequate rest, adequate fluid intake. Instructed him to follow-up with primary care provider this week. Return precautions discussed at bedside. Patient verbalized understanding of and agreement with plan. Differential Diagnosis Differential Diagnoses: The differential diagnosis associated with the presentation includes As per MDM. Lab Data [facility] Lab Attestation statement: I reviewed the patient's lab results. As per [facility]. Labs: Lab Results 07/28/23 07/28/23 07/28/23 Range/Units 16:14 16:14 16:50 COVID-19 (HETAL) Negative (Negative) COVID-19 Clin Com See Note Influenza Type A (CARLOS) Negative (Negative) Influenza Type B (CARLOS) Negative (Negative) Influenza A & B Note See Note S. pyogenes GrpA CARLOS Negative (Negative) External Record Review External record reviewed: Inpatient record, Office record and Outpatient record Discharge Plan Discharge Clinical Impression: Viral infection Patient Disposition: Home, Self-Care Instructions: Viral Syndrome (ED) Additional Instructions: Your evaluated in the emergency department today for fatigue, headache, cough and sore throat. You were tested for COVID, flu, and strep throat all of which were negative. Your symptoms are likely related to a viral illness which should resolve on their own over the next few days with rest and fluids. You can use Tylenol 650 mg every 6 hours or ibuprofen 600 mg every 6 hours as needed for fever or discomfort. You should follow-up with your primary care provider this week. Return to the emergency department if you develop worsening pain, shortness of breath, chest pain, fever 100.4? F or greater, or any other concerning symptoms. Prescriptions: No Action cephalexin 500 mg capsule 500 mg PO QID 7 Days Qty: 28 0RF ibuprofen 600 mg tablet 600 mg PO Q8H PRN (Reason: pain) Qty: 10 0RF cyclobenzaprine 10 mg tablet 10 mg PO TID PRN (Reason: muscle spasm) Qty: 14 0RF lidocaine 4 % adhesive patch,medicated 1 patch topical DAILY PRN (Reason: pain) Qty: 10 0RF Rx Instructions: may leave on for up to 12 hrs ibuprofen 600 mg tablet 600 mg PO Q6H PRN (Reason: pain) Qty: 30 0RF cephalexin 500 mg capsule 500 mg PO QID Qty: 28 0RF penicillin V potassium 500 mg tablet 500 mg PO BID 10 Days Qty: 20 0RF naproxen 500 mg tablet 500 mg PO BID 7 Days Qty: 14 0RF chlorhexidine gluconate [Peridex] 0.12 % mouthwash 15 ml buccal BID Qty: 118 0RF
--- NOTE | 2023-07-28 16:23 | PC.NURSE ---
viral swabs obtained - pt awaiting provider eval
[2023-07-28 16:37] LABS: COVID-19 Test Negative (Negative); IDNOW Serial# 08D9AD1C; IDNOW Serial# BCCEAD1C; Influenza A Negative (Negative); Influenza B2 Negative (Negative)
[2023-07-28 17:06] LABS: IDNOW Serial# 08D9AD1C; Strep A Nucleic Acid Negative (Negative)
== END 2023-07-28 18:45 | disposition home or self-care (01) ==
PROVIDERS: Nurse Practitioner Family; Registered Nurse Emergency; Emergency Provider Emergency Medicine
DX: B34.9 Viral infection, unspecified (principal); R51.9 Headache, unspecified; J02.9 Acute pharyngitis, unspecified; R05.9 Cough, unspecified; Z20.822 Contact with and (suspected) exposure to COVID-19
CPT/HCPCS: 87502; 87635; 87651; 99282; 99283

== ENCOUNTER 2023-10-06 21:42 | Emergency (ER) | payer OTHER, SELFPAY ==
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
[2023-10-06 21:51] VITALS: BP 158/62; PULSE 76; RESP 18; TEMP 36.9; O2SAT 98; BMI 20.7
--- NOTE | 2023-10-06 23:27 | PC.NURSE ---
Assumed care of pt. Pt hand wrapped with huy bandage, ice provided for pain relief. pending MD evaluation.
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
== END 2023-10-07 00:48 | disposition home or self-care (01) ==
PROVIDERS: Emergency Provider Emergency Medicine
DX: S60.221A Contusion of right hand, initial encounter (principal); W23.0XXA Caught, crushed, jammed, or pinched between moving objects, initial encounter; Y93.89 Activity, other specified; Y92.9 Unspecified place or not applicable; Y99.9 Unspecified external cause status; M79.641 Pain in right hand
CPT/HCPCS: 73130; 99283; 99284

== ENCOUNTER 2023-11-04 23:54 | Emergency (ER) | payer OTHER, SELFPAY ==
[2023-11-04 23:59] VITALS: BP 127/60; PULSE 100; RESP 16; TEMP 36.1; O2SAT 95; BMI 22.1
[2023-11-05 03:33] LABS: Influenza A PCR NEGATIVE (Negative); Influenza B PCR NEGATIVE (Negative); Resp Syncy Virus RNA Qual PCR NEGATIVE (Negative); SARS COV2 PCR INHOUSE NEGATIVE (Negative)
--- NOTE | 2023-11-05 04:22 | ED_ITS ---
HPI - URI/Sore Throat General Chief Complaint: Upper Respiratory Symptoms Stated Complaint: flu like symptoms Time Seen by Provider: 11/05/23 03:50 Source: patient Mode of arrival: ambulatory Limitations: no limitations History of Present Illness HPI Narrative: 48 yo male otherwise healthy here with c/o body aches, cough, productive sputum some nausea but no diarrhea and no vomiting. He has not had a fever. He notes no travel, sick contacts. Has no hx of asthma, bronchitis or issues with lungs MD elicited complaint: cough Onset (ago): day(s) (1) Consistency: constant Severity: moderate Description of mucous: clear Able to tolerate fluids by mouth: Yes Exacerbating factors: nothing Relieving factors: nothing Associated symptoms: myalgias, nasal congestion, cough, shortness of breath and nausea Related Data Previous Rx's Medication Instructions Recorded cyclobenzaprine 10 mg tablet 10 mg PO TID PRN muscle spasm #14 04/24/22 tabs ibuprofen 600 mg tablet 600 mg PO Q6H PRN pain #30 tabs 04/24/22 lidocaine 4 % topical patch 1 patch topical DAILY PRN pain #10 04/24/22 ea cephalexin 500 mg capsule 500 mg PO QID 7 days #28 caps 07/31/22 ibuprofen 600 mg tablet 600 mg PO Q8H PRN pain #10 tabs 07/31/22 cephalexin 500 mg capsule 500 mg PO QID #28 caps 06/03/23 chlorhexidine gluconate 0.12 % 15 ml buccal BID #118 mL 07/07/23 mouthwash (Peridex) naproxen 500 mg tablet 500 mg PO BID 7 days #14 tabs 07/07/23 penicillin V potassium 500 mg 500 mg PO BID 10 days #20 tabs 07/07/23 tablet albuterol sulfate 90 mcg/actuation 2 puff inhalation QID PRN 11/05/23 aerosol inhaler shortness of breath or wheezing #6.7 grams amoxicillin 875 mg-potassium 1 tab PO BID #14 tabs 11/05/23 clavulanate 125 mg tablet Allergies Allergy/AdvReac Type Severity Reaction Status Date / Time No Known Allergies Allergy Verified 11/05/23 00:04 Review of Systems Review of Systems: Constitutional : No Fever, No Chills ENT/Mouth : No Hoarseness, No sore throat, pos Rhinorrhea Eyes: No Redness, No Discharge, No Vision Changes Cardiovascular : No Chest Pain, positive SOB, positive Dyspnea on Exertion, No Edema Respiratory : positive Cough, pos Sputum, positive Wheezing, Gastrointestinal : pos Nausea, No Vomiting, No Diarrhea, No abdominal Pain Genitourinary : No Dysuria, No Hematuria Musculoskeletal : No joint pain, No Myalgias Skin : No rash Neuro : No Weakness, No Numbness, No Headache Psych : No anxiety, depression Heme/Lymph: No Bruising, No Bleeding Endocrine : No Polyuria, No Polydipsia All other systems reviewed and are negative [facility] Past Medical History Attestation statement: The following information was validated with the patient. Medical History No pertinent past medical history COVID-19 Social History Social History Alcohol intake: never Patient Tobacco Use Status: Never used Tobacco Advance Directives: No Advance Directives Information Provided: Yes Physical Exam Vital Signs: Vital Signs: Last Vital Signs Temp 97.0 F 11/04/23 23:59 Pulse 100 11/04/23 23:59 Resp 16 11/04/23 23:59 BP 127/60 11/04/23 23:59 Pulse Ox 95 11/04/23 23:59 O2 Del Method Room Air 11/04/23 23:59 BMI result Body Mass Index 22.1 Appearance: Alert. Oriented X3. No acute distress. Eyes: Pupils equal, round and reactive to light. ENT: Pharynx normal. Neck: Normal inspection. Neck supple. CVS: Normal heart rate and rhythm. Pulses normal. Respiratory: No respiratory distress. Breath sounds left lower lobe diminished with rhonchi noted Abdomen: Soft and nontender. Skin: Skin warm and dry. Normal skin color. Normal skin turgor. Extremities: No lower extremity edema. No calf ttp Neuro: Oriented X 3. No motor deficit. No sensory deficit. Medical Decision Making Medical Decision Making [facility] Narrative: 48 yo male no sig PMH here with c/o cough, viral like symptoms not toxic here with c/o bronchitis like symptoms - at this time will need INH and bronchitis treatment start on augmentin he is slightly diminished in left lower lobe but not toxic, no fevers and no hypoxia. He has no splinting on exam. Differential Diagnosis Differential Diagnoses: The differential diagnosis associated with the presentation includes bronchitis, viral syndrome, pneumonia Admission/Observation Consideration of admission/observation: Escalation of care including admission/observation considered VS stable, no resp distress can be managed as outpatient Lab Data [facility] Lab Attestation statement: I reviewed the patient's lab results. Labs: Lab Results 11/05/23 Range/Units 02:53 Influenza Type A (PCR) NEGATIVE (Negative) Influenza Type B (PCR) NEGATIVE (Negative) RSV RNA Qual (PCR) NEGATIVE (Negative) SARS-CoV-2 RNA (RT-PCR) NEGATIVE (Negative) Prescription Management I considered prescription management with: Antibiotic and Other Discharge Plan Discharge Clinical Impression: Bronchitis Patient Disposition: Home, Self-Care Instructions: Acute Bronchitis (ED) Additional Instructions: return for worsening fevers, difficulty breathing, vomiting, inability to eat or drink, severe pain or any other concerns. Regrese si la fiebre empeora, dificultad para respirar, v?mitos, incapacidad para comer o beber, dolor intenso o cualquier otra inquietud. Prescriptions: New albuterol sulfate 90 mcg/actuation HFA aerosol inhaler 2 puff inhalation QID PRN (Reason: shortness of breath or wheezing) Qty: 6.7 0RF amoxicillin-pot clavulanate 875-125 mg tablet 1 tab PO BID Qty: 14 0RF No Action cephalexin 500 mg capsule 500 mg PO QID 7 Days Qty: 28 0RF ibuprofen 600 mg tablet 600 mg PO Q8H PRN (Reason: pain) Qty: 10 0RF cyclobenzaprine 10 mg tablet 10 mg PO TID PRN (Reason: muscle spasm) Qty: 14 0RF lidocaine 4 % adhesive patch,medicated 1 patch topical DAILY PRN (Reason: pain) Qty: 10 0RF Rx Instructions: may leave on for up to 12 hrs ibuprofen 600 mg tablet 600 mg PO Q6H PRN (Reason: pain) Qty: 30 0RF cephalexin 500 mg capsule 500 mg PO QID Qty: 28 0RF penicillin V potassium 500 mg tablet 500 mg PO BID 10 Days Qty: 20 0RF naproxen 500 mg tablet 500 mg PO BID 7 Days Qty: 14 0RF chlorhexidine gluconate [Peridex] 0.12 % mouthwash 15 ml buccal BID Qty: 118 0RF
== END 2023-11-05 04:38 | disposition home or self-care (01) ==
PROVIDERS: Emergency Provider Emergency Medicine
DX: J40 Bronchitis, not specified as acute or chronic (principal); Z20.822 Contact with and (suspected) exposure to COVID-19; Z20.828 Contact with and (suspected) exposure to other viral communicable diseases; R11.0 Nausea
CPT/HCPCS: 0241U; 99282; 99283

== ENCOUNTER 2023-12-28 21:49 | Emergency (ER) | payer OTHER, SELFPAY ==
--- NOTE | ~2023-12-28 | XR_ITS ---
EXAMINATION: XR TOES, LEFT CLINICAL INFORMATION: Great toe pain. History of surgery. COMPARISON: None available. TECHNIQUE: 3 views of the left toes were obtained. FINDINGS: There is abnormal morphology of the articular surfaces at the great toe interphalangeal joint which may correspond to chronic changes of prior trauma or prior surgery. There is cortical irregularity with marginal osteophytes and joint space narrowing, suggesting mild superimposed degenerative joint disease. Small marginal osteophytes are also present at the first MTP joint with minimal cortical irregularity. Joints otherwise relatively well-preserved. Mild soft tissue swelling of the great toe. No acute osteolysis. 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 Abnormal morphology at the great toe interphalangeal joint may be the result of prior trauma and/or surgery.. Mild osteoarthritis at the first MTP joint. No acute osseous findings.
[2023-12-28 21:53] VITALS: BP 108/65; PULSE 79; RESP 14; TEMP 36.9; O2SAT 96; BMI 21.0
--- NOTE | 2023-12-28 22:48 | ED.EXTPRO ---
HPI - Extremity Problem General Chief complaint: Extremity Problem Stated complaint: Toe pain Time Seen by Provider: 12/28/23 22:42 Source: patient Mode of arrival: ambulatory Limitations: no limitations History of Present Illness HPI Narrative: Patient comes to the emergency room complaining of pain in the great toe on the left foot. Patient states that several years ago he had some kind of foot surgery for which he needed screws on his toe. Since then, patient has no mobility of his toe and it stays in the same position. Patient states that about 3 days ago, patient was working, patient hurt something cracking on his foot and since then he has been having pain on the great toe. Patient denies history of diabetes or gout. Related Data Previous Rx's Medication Instructions Recorded cyclobenzaprine 10 mg tablet 10 mg PO TID PRN muscle spasm #14 04/24/22 tabs ibuprofen 600 mg tablet 600 mg PO Q6H PRN pain #30 tabs 04/24/22 lidocaine 4 % topical patch 1 patch topical DAILY PRN pain #10 04/24/22 ea cephalexin 500 mg capsule 500 mg PO QID 7 days #28 caps 07/31/22 ibuprofen 600 mg tablet 600 mg PO Q8H PRN pain #10 tabs 07/31/22 cephalexin 500 mg capsule 500 mg PO QID #28 caps 06/03/23 chlorhexidine gluconate 0.12 % 15 ml buccal BID #118 mL 07/07/23 mouthwash (Peridex) naproxen 500 mg tablet 500 mg PO BID 7 days #14 tabs 07/07/23 penicillin V potassium 500 mg 500 mg PO BID 10 days #20 tabs 07/07/23 tablet albuterol sulfate 90 mcg/actuation 2 puff inhalation QID PRN 11/05/23 aerosol inhaler shortness of breath or wheezing #6.7 grams amoxicillin 875 mg-potassium 1 tab PO BID #14 tabs 11/05/23 clavulanate 125 mg tablet cephalexin 500 mg capsule 500 mg PO BID #13 caps 12/29/23 ibuprofen 600 mg tablet 600 mg PO TID PRN fever or pain 12/29/23 #20 tabs prednisone 20 mg tablet 20 mg PO DAILY #5 tabs 12/29/23 Allergies Allergy/AdvReac Type Severity Reaction Status Date / Time No Known Allergies Allergy Verified 12/28/23 21:53 Review of Systems Review of Systems: Constitutional : No Weight loss, No Fever, No Chills, No Night Sweats, No Fatigue, No Malaise ENT/Mouth : No Hearing loss, No Ear Pain, No Nasal Congestion, No Sinus Pain, No Hoarseness, No sore throat, No Rhinorrhea, No Swallowing Difficulty Eyes: No Eye Pain, No Swelling, No Redness, No Foreign Body, No Discharge, No Vision Changes Cardiovascular : No Chest Pain, No SOB, No Dyspnea on Exertion, No Orthopnea, No Edema, No Palpitations Respiratory : No Cough, No Sputum, No Wheezing, No Smoke Exposure, No Dyspnea Gastrointestinal : No Nausea, No Vomiting, No Diarrhea, No Constipation, No abdominal Pain, No Hematochezia, No Melena Genitourinary : no irregular bleeding, No Dysuria, No Urinary Frequency, No Hematuria, No Urinary Incontinence, No Urgency, No Flank Pain, No Urinary Flow Changes, No Hesitancy Musculoskeletal : Complaining of pain in the great toe on the left foot No Myalgias, No Joint Swelling Skin : No Skin Lesions, No rash Neuro : No Weakness, No Numbness, No Paresthesias, No Loss of Consciousness, No Dizziness, No Headache Psych : No Anxiety/Panic, No Depression, No SI/HI/AH/VH, No Social Issues, Heme/Lymph: No Bruising, No Bleeding,No Lymphadenopathy Endocrine : No Polyuria, No Polydipsia, No Temperature Intolerance PMFSH Past Medical History Medical History No pertinent past medical history COVID-19 Social History Social History Alcohol intake: never Patient Tobacco Use Status: Never used Tobacco Advance Directives: No Advance Directives Information Provided: No Physical Exam Vital Signs: Vital Signs: Last Vital Signs Temp 97.6 F 12/29/23 00:18 Pulse 59 12/29/23 00:18 Resp 16 12/29/23 00:18 BP 110/63 12/29/23 00:18 Pulse Ox 98 12/29/23 00:18 O2 Del Method Room Air 12/29/23 00:18 BMI result Body Mass Index 21.0 Const: Other: Appearance: Alert. Oriented X3. No acute distress. Eyes: Pupils equal, round and reactive to light. ENT: Pharynx normal. Neck: Normal inspection. Neck supple. No lymph nodes noted. No crepitus CVS: Normal heart rate and rhythm. Pulses normal. Normal S1 and S2 Respiratory: No respiratory distress. Breath sounds normal. No Wheezing. No rales Abdomen: Soft and nontender. No rigidity. No distention. Skin: Skin warm and dry. Normal skin color. Normal skin turgor. Extremities: No lower extremity edema. No Lacerations. No Rash, pain to palpation over the toe, does not seem erythematous Neuro: Oriented X 3. No motor deficit. No sensory deficit. Moving all extremities. No slurred speech. CN 2 through 12 grossly intact Psych: calm, cooperative, normal affect Course Course Course Narrative: -x-rays of the foot pending Medical Decision Making Medical Decision Making MDM Narrative: -my interpretation of foot x-ray: No acute fracture, positive for osteoarthritis Patient still it is tender on palpation. We will give the patient a dose of steroids, antibiotics and NSAIDs to treat cellulitis, possibly gout. Differential Diagnosis Differential Diagnoses: The differential diagnosis associated with the presentation includes (Toe fracture, gout, cellulitis) Independent Interpretation I performed an independent interpretation of an: Plain X-Ray Radiology Impression Discussion of test interpretation with radiology: I have reviewed the radiologist's reading. Radiologist Impression: FINDINGS: There is abnormal morphology of the articular surfaces at the great toe interphalangeal joint which may correspond to chronic changes of prior trauma or prior surgery. There is cortical irregularity with marginal osteophytes and joint space narrowing, suggesting mild superimposed degenerative joint disease. Small marginal osteophytes are also present at the first MTP joint with minimal cortical irregularity. Joints otherwise relatively well-preserved. Mild soft tissue swelling of the great toe. No acute osteolysis. 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 Abnormal morphology at the great toe interphalangeal joint may be the result of prior trauma and/or surgery.. Mild osteoarthritis at the first MTP joint. No acute osseous findings. Discharge Plan Discharge Clinical Impression: Great toe pain Patient Disposition: Home, Self-Care Instructions: Arthralgia (ED) Additional Instructions: Please follow-up with your primary care physician tomorrow. If you have any worsening or new symptoms, please return to the emergency room or call 911 Prescriptions: New prednisone 20 mg tablet 20 mg PO DAILY Qty: 5 0RF ibuprofen 600 mg tablet 600 mg PO TID PRN (Reason: fever or pain) Qty: 20 0RF cephalexin 500 mg capsule 500 mg PO BID Qty: 13 0RF No Action cephalexin 500 mg capsule 500 mg PO QID 7 Days Qty: 28 0RF ibuprofen 600 mg tablet 600 mg PO Q8H PRN (Reason: pain) Qty: 10 0RF cyclobenzaprine 10 mg tablet 10 mg PO TID PRN (Reason: muscle spasm) Qty: 14 0RF lidocaine 4 % adhesive patch,medicated 1 patch topical DAILY PRN (Reason: pain) Qty: 10 0RF Rx Instructions: may leave on for up to 12 hrs ibuprofen 600 mg tablet 600 mg PO Q6H PRN (Reason: pain) Qty: 30 0RF cephalexin 500 mg capsule 500 mg PO QID Qty: 28 0RF albuterol sulfate 90 mcg/actuation HFA aerosol inhaler 2 puff inhalation QID PRN (Reason: shortness of breath or wheezing) Qty: 6.7 0RF amoxicillin-pot clavulanate 875-125 mg tablet 1 tab PO BID Qty: 14 0RF penicillin V potassium 500 mg tablet 500 mg PO BID 10 Days Qty: 20 0RF naproxen 500 mg tablet 500 mg PO BID 7 Days Qty: 14 0RF chlorhexidine gluconate [Peridex] 0.12 % mouthwash 15 ml buccal BID Qty: 118 0RF Stand Alone Forms: Work/School Release
[2023-12-29 00:18] VITALS: BP 110/63; PULSE 59; RESP 16; TEMP 36.4; O2SAT 98
[2023-12-29] MEDS: cephALEXin 500 MG CAPSULE PO (00:46)
[2023-12-29] MEDS: predniSONE 20 MG TABLET PO (00:46)
[2023-12-29] MEDS: Ibuprofen 600 MG TABLET PO (00:46)
== END 2023-12-29 00:49 | disposition home or self-care (01) ==
PROVIDERS: Emergency Provider Emergency Medicine
DX: M79.675 Pain in left toe(s) (principal)
CPT/HCPCS: 73660; 99283; 99284

== ENCOUNTER 2024-04-24 12:04 | Emergency (ER) | payer OTHER, SELFPAY ==
--- NOTE | ~2024-04-24 | XR_ITS ---
EXAMINATION: XR HAND, LEFT CLINICAL INFORMATION: Left fifth digit/hand pain. COMPARISON: None available. TECHNIQUE: PA, lateral, and oblique views of the left hand. FINDINGS: The bones and soft tissues are normal. No fracture. Alignment is anatomic. Joint spaces are maintained. No erosions or soft tissue calcifications. XR/XR hand LT min 3V IMPRESSION: No fracture or dislocation.
[2024-04-24 12:21] VITALS: BP 101/65; PULSE 72; RESP 16; TEMP 36.9; O2SAT 98; BMI 20.8
--- NOTE | 2024-04-24 12:22 | ED_ITS ---
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 He reports an injury while at work 1 week ago. He was hitting boxes with the ulnar aspect of his hand in order to break them down resulting in his pain. In fact, he was evaluated at [facility], reportedly it was dislocated, he was discharged home with a splint in place. He has not taken any Tylenol or ibuprofen for his pain. He continues to have pain to the digit and swelling at the base of the digit. He states he would like to know whether he can return to work safely or not. Related Data Previous Rx's ?Medication ?Instructions ?Recorded cyclobenzaprine 10 mg tablet 10 mg PO TID PRN muscle spasm #14 04/24/22 tabs ibuprofen 600 mg tablet 600 mg PO Q6H PRN pain #30 tabs 04/24/22 lidocaine 4 % topical patch 1 patch topical DAILY PRN pain #10 04/24/22 ea cephalexin 500 mg capsule 500 mg PO QID 7 days #28 caps 07/31/22 ibuprofen 600 mg tablet 600 mg PO Q8H PRN pain #10 tabs 07/31/22 cephalexin 500 mg capsule 500 mg PO QID #28 caps 06/03/23 chlorhexidine gluconate 0.12 % 15 ml buccal BID #118 mL 07/07/23 mouthwash (Peridex) naproxen 500 mg tablet 500 mg PO BID 7 days #14 tabs 07/07/23 penicillin V potassium 500 mg 500 mg PO BID 10 days #20 tabs 07/07/23 tablet albuterol sulfate 90 mcg/actuation 2 puff inhalation QID PRN 11/05/23 aerosol inhaler shortness of breath or wheezing #6.7 grams amoxicillin 875 mg-potassium 1 tab PO BID #14 tabs 11/05/23 clavulanate 125 mg tablet cephalexin 500 mg capsule 500 mg PO BID #13 caps 12/29/23 ibuprofen 600 mg tablet 600 mg PO TID PRN fever or pain 12/29/23 #20 tabs prednisone 20 mg tablet 20 mg PO DAILY #5 tabs 12/29/23 Allergies Allergy/AdvReac Type Severity Reaction Status Date / Time No Known Allergies Allergy Verified 04/24/24 12:22 Review of Systems Review of Systems: Yes all other systems are reviewed and are negative [facility] Past Medical History Attestation statement: The following information was validated with the patient. Source: old records reviewed Medical History No pertinent past medical history COVID-19 Social History Social History Alcohol intake: never Patient Tobacco Use Status: Never used Tobacco Advance Directives: No Physical Exam Vital Signs: Vital Signs: Last Vital Signs Temp 98.2 F 04/24/24 15:16 Pulse 76 04/24/24 15:16 Resp 18 04/24/24 15:16 BP 110/66 04/24/24 15:16 Pulse Ox 98 04/24/24 15:16 O2 Del Method Room Air 04/24/24 15:16 BMI result Body Mass Index 20.8 Appearance: Alert.?Oriented to person, place and time. No acute d istress.?Normal affect. Neck: Normal inspection.? Neck supple.?? CVS: Heart sounds normal. Normal heart rate and rhythm.? Pulses normal.?? Respiratory: No respiratory distress.? Lung sounds clear to auscultation bilaterally??? Skin: Skin warm and dry.? Normal skin color.? Extremities: left 5th digit with localized edema, no obvious deformity, no erythema or warmth. No open wounds or lesions. Neuro: Moves all extremities spontaneously. Sensation intact bilaterally. Ambulates with normal steady gait. Course Course Course Narrative: This is an RME: Additional HPI, ROS, PE not included below will be deferred to primary provider. RME assessment and note performed by: Vandana Garrison PA-C This is a [id number]-male, with no known medical problems, who presents to the ER with a complaints of left 5th digit pain x1 week. Patient states that while at work he hit boxes to open them. He states that while he was hitting a box last week he developed pain in his left 5th digit. Left digit is edematous, with decreased range of motion. Plan: X-ray Medical Decision Making Medical Decision Making [facility] Narrative: Patient is a 48-year-old male right-hand dominant who presents emergency department for evaluation of traumatic injury to the left 5th digit as per HPI. On exam has localized swelling, held in partial flexion, able to extend the digit completely but increased pain with flexion. He reports a recent dislocation as per HPI, has not been utilizing the finger splint as instructed, nor has he used any OTC oral analgesics for pain management. A repeat x-ray today does not show evidence of acute fracture or dislocation. The point of most comfort is in a slightly flexed position, he declines interest in a splint application at this time. Advised use of acetaminophen / ibuprofen in addition to ice to the area for 10-15 minutes 3-4 times daily. He has requesting a work note so that he may return in 2 days which I feel is reasonable as he is hands on at work. Advised outpatient follow-up with primary care provider for re- evaluation should his symptoms persist. At this time no sign of infectious process, not consistent with septic arthritis, no felon. Differential Diagnosis Differential Diagnoses: The differential diagnosis associated with the presentation includes ( See narrative above) Independent Interpretation I performed an independent interpretation of an: Plain X-Ray ( no acute fracture) Radiology Impression Discussion of test interpretation with radiology: I have reviewed the radiologist's reading. Radiologist Impression: XR/XR hand LT min 3V IMPRESSION: No fracture or dislocation. External Record Review External record reviewed: Outpatient record Prescription Management I considered prescription management with: Pain Medication ( see narrative above) Discharge Plan Discharge Clinical Impression: Contusion of finger Qualifiers: Encounter type: initial encounter Finger: little finger Damage to nail status: without damage Laterality: left Qualified Code(s): S60.052A - Contusion of left little finger without damage to nail, initial encounter Patient Disposition: Home, Self-Care Instructions: Contusion in Adults (ED) Additional Instructions: You can take ibuprofen 200 mg, 3 tablets (600mg) every 6-8 hours as needed for pain, in addition to Tylenol 500 mg, 2 tablets (1,000mg) every 4-6 hours as needed for pain, but not to exceed 3 doses daily (3,000mg).? Prescriptions: No Action cephalexin 500 mg capsule 500 mg PO QID 7 Days Qty: 28 0RF ibuprofen 600 mg tablet 600 mg PO Q8H PRN (Reason: pain) Qty: 10 0RF cyclobenzaprine 10 mg tablet 10 mg PO TID PRN (Reason: muscle spasm) Qty: 14 0RF lidocaine 4 % adhesive patch,medicated 1 patch topical DAILY PRN (Reason: pain) Qty: 10 0RF Rx Instructions: may leave on for up to 12 hrs ibuprofen 600 mg tablet 600 mg PO Q6H PRN (Reason: pain) Qty: 30 0RF cephalexin 500 mg capsule 500 mg PO QID Qty: 28 0RF albuterol sulfate 90 mcg/actuation HFA aerosol inhaler 2 puff inhalation QID PRN (Reason: shortness of breath or wheezing) Qty: 6.7 0RF amoxicillin-pot clavulanate 875-125 mg tablet 1 tab PO BID Qty: 14 0RF penicillin V potassium 500 mg tablet 500 mg PO BID 10 Days Qty: 20 0RF naproxen 500 mg tablet 500 mg PO BID 7 Days Qty: 14 0RF chlorhexidine gluconate [Peridex] 0.12 % mouthwash 15 ml buccal BID Qty: 118 0RF prednisone 20 mg tablet 20 mg PO DAILY Qty: 5 0RF ibuprofen 600 mg tablet 600 mg PO TID PRN (Reason: fever or pain) Qty: 20 0RF cephalexin 500 mg capsule 500 mg PO BID Qty: 13 0RF Referrals: Physician,Unknown J [Primary Care Provider] - Stand Alone Forms: Work/School Release Print Language: [place]
[2024-04-24 15:16] VITALS: BP 110/66; PULSE 76; RESP 18; TEMP 36.8; O2SAT 98
[2024-04-24 16:04] VITALS: BP 110/66; PULSE 76; RESP 18; TEMP 36.8; O2SAT 98
== END 2024-04-24 16:05 | disposition home or self-care (01) ==
PROVIDERS: Emergency Provider Emergency Medicine Emergency Medical Services
DX: S60.052A Contusion of left little finger without damage to nail, initial encounter (principal); W23.0XXA Caught, crushed, jammed, or pinched between moving objects, initial encounter; Y93.89 Activity, other specified; Y92.9 Unspecified place or not applicable; Y99.0 Civilian activity done for income or pay; M79.645 Pain in left finger(s)
CPT/HCPCS: 73130; 99282; 99283

== ENCOUNTER 2024-07-14 00:59 | Emergency (ER) | payer OTHER, SELFPAY ==
[2024-07-14 01:01] VITALS: BP 104/49; PULSE 61; RESP 16; TEMP 36.3; O2SAT 98; BMI 27.3
--- NOTE | 2024-07-14 07:26 | ED.GENADULT ---
HPI - General Adult General Chief complaint: Extremity Injury, Lower Stated complaint: lac? 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 He reports that his symptoms began after purchasing new work boots. Pain increases with ambulation. Denies any discharge or drainage. Denies swelling. Denies fevers. MD complaint: Left foot pain Onset (ago): week(s) Severity: severe Quality: aching Relieving factors: rest Associated symptoms: denies other symptoms Treatments prior to arrival: none Related Data Previous Rx's ?Medication ?Instructions ?Recorded cyclobenzaprine 10 mg tablet 10 mg PO TID PRN muscle spasm #14 04/24/22 tabs ibuprofen 600 mg tablet 600 mg PO Q6H PRN pain #30 tabs 04/24/22 lidocaine 4 % topical patch 1 patch topical DAILY PRN pain #10 04/24/22 ea cephalexin 500 mg capsule 500 mg PO QID 7 days #28 caps 07/31/22 ibuprofen 600 mg tablet 600 mg PO Q8H PRN pain #10 tabs 07/31/22 cephalexin 500 mg capsule 500 mg PO QID #28 caps 06/03/23 chlorhexidine gluconate 0.12 % 15 ml buccal BID #118 mL 07/07/23 mouthwash (Peridex) naproxen 500 mg tablet 500 mg PO BID 7 days #14 tabs 07/07/23 penicillin V potassium 500 mg 500 mg PO BID 10 days #20 tabs 07/07/23 tablet albuterol sulfate 90 mcg/actuation 2 puff inhalation QID PRN 11/05/23 aerosol inhaler shortness of breath or wheezing #6.7 grams amoxicillin 875 mg-potassium 1 tab PO BID #14 tabs 11/05/23 clavulanate 125 mg tablet cephalexin 500 mg capsule 500 mg PO BID #13 caps 12/29/23 ibuprofen 600 mg tablet 600 mg PO TID PRN fever or pain 12/29/23 #20 tabs prednisone 20 mg tablet 20 mg PO DAILY #5 tabs 12/29/23 diclofenac sodium 1 % topical gel 2 g topical QID #100 grams 07/14/24 (Arthritis Pain (diclofenac)) Allergies Allergy/AdvReac Type Severity Reaction Status Date / Time No Known Allergies Allergy Verified 07/14/24 01:06 Review of Systems Review of Systems: As per HPI Yes all other systems are reviewed and are negative Constitutional: Constitutional: Reports as per HPI [facility] Past Medical History Medical History No pertinent past medical history COVID-19 Social History Social History Alcohol intake: never Patient Tobacco Use Status: Never used Tobacco Advance Directives: No Advance Directives Information Provided: Yes Physical Exam ED Vital Signs: Vital Signs - 24 hr 07/14/24 01:01 Temperature 97.4 F Pulse Rate 61 Respiratory Rate 16 Blood Pressure 104/49 L Pulse Oximetry 98 Oxygen Delivery Method Room Air BMI result Body Mass Index 27.3 Vital signs have been reviewed and appear to be correct. Blood pressure normal. Heart rate normal. Respiratory rate normal. Temperature normal. Oxygen saturation normal. Const General: cooperative, healthy appearing and no acute distress Orientation/consciousness: oriented to person, oriented to place, oriented to time and patient oriented x3 Limitations: no limitations HENMT Head: Yes normocephalic and Yes atraumatic Ears: external ears normal General nose exam: Normal external nose present Face and sinus: Yes face symmetric Mouth: oropharynx normal and moist mucous membranes Throat: Yes uvula midline Eyes Pupils: Equal, round and reactive pupils present Neck Neck: Yes normal visual inspection and Yes supple Resp Effort & Inspection: normal respiratory effort and able to speak in complete sentences Auscultation: clear to auscultation bilaterally Cardio Rate: regular rate Rhythm: regular rhythm Heart sounds: S1 normal heart sound present and S2 normal heart sound present GI Palpation (GI): Soft to palpation and nontender Auscultation: normoactive bowel sounds General: Yes no CVA tenderness Back/Spine/Pelvis Back: no CVA tenderness Skin General skin exam: elasticity normal and turgor normal Neuro General: oriented to person, oriented to place, oriented to time, patient oriented x3, moves all extremities, no focal motor deficits and CN's II-XI intact bilaterally Cranial nerves: Yes Equal, round and reactive pupils present Cognition (Neuro): normal cognition Extrem General: Yes full ROM, Yes normal exam except as noted, Yes no pedal edema and Yes no calf tenderness Left lower extremity: foot Details: normal capillary refill, tenderness Location: of the plantar foot (see image), toes with normal ROM, no edema and vascular exam Details: dorsalis pedis pulse present and posterior tibial pulse present; no unusual warmth Ankle/foot/toe images: 1. hyperkeratotic area without erythema, warmth, or fluctuance 2. hyperkeratotic area without erythema, warmth, or fluctuance 3. hyperkeratotic area without erythema, warmth, or fluctuance Psych Mental Status: mental status grossly normal Affect: normal affect Thought process: Normal thought process present Medical Decision Making Medical Decision Making [facility] Narrative: Patient is a 49-year-old [place]-speaking male presenting emergency department with complaint of pain to plantar surface of left foot. On exam patient is awake, A+Ox3, VS WNL, afebrile, normal neurological exam without focal deficits, physical exam findings as above. Given reported symptoms and physical exam findings, initial differential includes left foot callouses, plantar warts, bullae. Physical exam findings consistent with calluses. Discussed with patient that removal of calluses is not an emergency department procedure, will refer to Podiatry. Will send prescription for diclofenac gel for pain. Discussed with patient that he should purchase [id number] insoles for his boots to provide additional cushioning. Return precautions discussed. Patient verbalized understanding of and agreement with plan. Assessment and plan discussed with in-person flavor extractor at bedside. Differential Diagnosis Differential Diagnoses: The differential diagnosis associated with the presentation includes As per [facility] External Record Review External record reviewed: Inpatient record, Office record and Outpatient record Prescription Management I considered prescription management with: Pain Medication Discharge Plan Discharge Clinical Impression: Callus of foot Patient Disposition: Home, Self-Care Additional Instructions: You were evaluated in the emergency department today for left foot pain which appears to be due to calluses. Calluses are a thickening of the skin on your foot. This is likely caused by your new boots. We recommend that you purchase [id number] insoles for your boots to provide additional cushioning. You are being prescribed diclofenac gel which you can use as prescribed for pain. If your symptoms persist, follow-up with design verification engineer. Return to the emergency department if you develop redness, swelling, thick yellow drainage, fever or any other concerning symptoms. Prescriptions: New diclofenac sodium [Arthritis Pain (diclofenac)] 1 % gel 2 g topical QID Qty: 100 0RF Rx Instructions: apply to left foot No Action cephalexin 500 mg capsule 500 mg PO QID 7 Days Qty: 28 0RF ibuprofen 600 mg tablet 600 mg PO Q8H PRN (Reason: pain) Qty: 10 0RF cyclobenzaprine 10 mg tablet 10 mg PO TID PRN (Reason: muscle spasm) Qty: 14 0RF lidocaine 4 % adhesive patch,medicated 1 patch topical DAILY PRN (Reason: pain) Qty: 10 0RF Rx Instructions: may leave on for up to 12 hrs ibuprofen 600 mg tablet 600 mg PO Q6H PRN (Reason: pain) Qty: 30 0RF cephalexin 500 mg capsule 500 mg PO QID Qty: 28 0RF albuterol sulfate 90 mcg/actuation HFA aerosol inhaler 2 puff inhalation QID PRN (Reason: shortness of breath or wheezing) Qty: 6.7 0RF amoxicillin-pot clavulanate 875-125 mg tablet 1 tab PO BID Qty: 14 0RF penicillin V potassium 500 mg tablet 500 mg PO BID 10 Days Qty: 20 0RF naproxen 500 mg tablet 500 mg PO BID 7 Days Qty: 14 0RF chlorhexidine gluconate [Peridex] 0.12 % mouthwash 15 ml buccal BID Qty: 118 0RF prednisone 20 mg tablet 20 mg PO DAILY Qty: 5 0RF ibuprofen 600 mg tablet 600 mg PO TID PRN (Reason: fever or pain) Qty: 20 0RF cephalexin 500 mg capsule 500 mg PO BID Qty: 13 0RF Referrals: Uday Palomino DPM [Physician] - CHERIE HUGHES [Physician] - Stand Alone Forms: Work/School Release Print Language: Mozambican
[2024-07-14 08:01] VITALS: BP 139/52; PULSE 57; RESP 12; TEMP 36.4; O2SAT 98
[2024-07-14 08:14] VITALS: BP 139/52; PULSE 57; RESP 12; TEMP 36.4; O2SAT 98
== END 2024-07-14 08:15 | disposition home or self-care (01) ==
PROVIDERS: Emergency Provider Emergency Medicine
DX: L84 Corns and callosities (principal); M79.672 Pain in left foot
CPT/HCPCS: 99283

== ENCOUNTER 2024-11-15 23:45 | Emergency (ER) | payer SELFPAY ==
--- NOTE | ~2024-11-15 | XR_ITS ---
EXAMINATION: XR KNEE, LEFT CLINICAL INFORMATION: injury COMPARISON: None available. TECHNIQUE: Four views of the left knee. FINDINGS: Tibial plateau appears intact. No fractures or subluxations identified. No joint effusion noted. No pretibial soft tissue inflammatory changes. No soft tissue emphysematous changes noted. Incidental note made of a jerad XR/XR knee LT 2V IMPRESSION: Normal left knee. Electronically signed by: Ayo Mead MD 11/16/2024 01:27 AM [facility]
[2024-11-16 00:01] VITALS: BP 111/67; PULSE 72; RESP 20; TEMP 36.9; O2SAT 98; BMI 19.2
--- NOTE | 2024-11-16 01:08 | ED.LOWEXIN ---
HPI - Extremity Injury (Lower) General Chief Complaint: Extremity Injury, Lower Stated Complaint: left knee pain Time Seen by Provider: 11/16/24 00:34 Source: patient Mode of arrival: ambulatory Limitations: no limitations History of Present Illness ED Provider: HPI Narrative: Apparently patient fell going downstairs missed last 3 steps and landed on his left knee hitting his kneecap to the ground been complaining of pain on ambulation no swelling of the knee noticed no other injuries prior to fall patient has no problem with the knee Related Data Previous Rx's ?Medication ?Instructions ?Recorded cyclobenzaprine 10 mg tablet 10 mg PO TID PRN muscle spasm #14 04/24/22 tabs ibuprofen 600 mg tablet 600 mg PO Q6H PRN pain #30 tabs 04/24/22 lidocaine 4 % topical patch 1 patch topical DAILY PRN pain #10 04/24/22 ea cephalexin 500 mg capsule 500 mg PO QID 7 days #28 caps 07/31/22 ibuprofen 600 mg tablet 600 mg PO Q8H PRN pain #10 tabs 07/31/22 cephalexin 500 mg capsule 500 mg PO QID #28 caps 06/03/23 chlorhexidine gluconate 0.12 % 15 ml buccal BID #118 mL 07/07/23 mouthwash (Peridex) naproxen 500 mg tablet 500 mg PO BID 7 days #14 tabs 07/07/23 penicillin V potassium 500 mg 500 mg PO BID 10 days #20 tabs 07/07/23 tablet albuterol sulfate 90 mcg/actuation 2 puff inhalation QID PRN 11/05/23 aerosol inhaler shortness of breath or wheezing #6.7 grams amoxicillin 875 mg-potassium 1 tab PO BID #14 tabs 11/05/23 clavulanate 125 mg tablet cephalexin 500 mg capsule 500 mg PO BID #13 caps 12/29/23 ibuprofen 600 mg tablet 600 mg PO TID PRN fever or pain 12/29/23 #20 tabs prednisone 20 mg tablet 20 mg PO DAILY #5 tabs 12/29/23 diclofenac sodium 1 % topical gel 2 g topical QID #100 grams 07/14/24 (Arthritis Pain (diclofenac)) ibuprofen 600 mg tablet 600 mg PO Q6H PRN fever or pain 11/16/24 #30 tabs Allergies Allergy/AdvReac Type Severity Reaction Status Date / Time No Known Allergies Allergy Verified 11/16/24 00:03 Review of Systems Review of Systems: Yes all other systems are reviewed and are negative [facility] Past Medical History Medical History No pertinent past medical history COVID-19 Social History Social History Alcohol intake: current Alcohol intake frequency: holidays/special occasions only Alcohol type: hard liquor Patient Tobacco Use Status: Never used Tobacco Smoked in Last 30 Days: Yes Use of substances other than those prescribed or required for medical reasons: No Substance Use Type: Marijuana Substance Use Frequency: Daily Last Used Substance: Just Prior to Admission Advance Directives: No Advance Directives Information Provided: Yes Physical Exam Vital Signs: Vital Signs: Last Vital Signs Temp 98.5 F 11/16/24 00:01 Pulse 72 11/16/24 00:01 Resp 20 11/16/24 00:01 BP 111/67 11/16/24 00:01 Pulse Ox 98 11/16/24 00:01 O2 Del Method Room Air 11/16/24 00:01 BMI result Body Mass Index 19.2 Appearance: Alert. Oriented X3. No acute distress. ENT: Pharynx normal. Oral Mucosa moist Neck: Normal inspection. Neck supple. No midline tenderness CVS: Normal heart rate and rhythm. Pulses normal. Respiratory: No respiratory distress. Equal air entry bilateral, no wheezing/rales/rhonchi Abdomen: Soft and nontender. Bowel sounds are present, no mass palpable, no CVA tenderness Skin: Skin warm and dry. Normal skin color. Normal skin turgor. Extremities: No lower extremity edema. No calf tenderness mild tenderness of the L knee cap no effusion good range of movement patient ambulatory Neuro: Oriented X 3. No motor deficit. Medical Decision Making Medical Decision Making MDM Narrative: Patient with knee contusion after minor fall x-ray negative no joint effusion Joseph wrap was applied and ibuprofen Independent Interpretation I performed an independent interpretation of an: Plain X-Ray Interpretation: No fracture Radiology Impression Discussion of test interpretation with radiology: I have reviewed the radiologist's reading. Discharge Plan Discharge Clinical Impression: Contusion of knee, left Patient Disposition: Home, Self-Care Instructions: Knee Pain (ED) Additional Instructions: Apply Joseph wrap Ibuprofen for pain Follow with the PCP/ortho if not better Prescriptions: New ibuprofen 600 mg tablet 600 mg PO Q6H PRN (Reason: fever or pain) Qty: 30 0RF No Action cephalexin 500 mg capsule 500 mg PO QID 7 Days Qty: 28 0RF ibuprofen 600 mg tablet 600 mg PO Q8H PRN (Reason: pain) Qty: 10 0RF cyclobenzaprine 10 mg tablet 10 mg PO TID PRN (Reason: muscle spasm) Qty: 14 0RF lidocaine 4 % adhesive patch,medicated 1 patch topical DAILY PRN (Reason: pain) Qty: 10 0RF Rx Instructions: may leave on for up to 12 hrs ibuprofen 600 mg tablet 600 mg PO Q6H PRN (Reason: pain) Qty: 30 0RF cephalexin 500 mg capsule 500 mg PO QID Qty: 28 0RF albuterol sulfate 90 mcg/actuation HFA aerosol inhaler 2 puff inhalation QID PRN (Reason: shortness of breath or wheezing) Qty: 6.7 0RF amoxicillin-pot clavulanate 875-125 mg tablet 1 tab PO BID Qty: 14 0RF diclofenac sodium [Arthritis Pain (diclofenac)] 1 % gel 2 g topical QID Qty: 100 0RF Rx Instructions: apply to left foot penicillin V potassium 500 mg tablet 500 mg PO BID 10 Days Qty: 20 0RF naproxen 500 mg tablet 500 mg PO BID 7 Days Qty: 14 0RF chlorhexidine gluconate [Peridex] 0.12 % mouthwash 15 ml buccal BID Qty: 118 0RF prednisone 20 mg tablet 20 mg PO DAILY Qty: 5 0RF ibuprofen 600 mg tablet 600 mg PO TID PRN (Reason: fever or pain) Qty: 20 0RF cephalexin 500 mg capsule 500 mg PO BID Qty: 13 0RF Print Language: Burkinan
[2024-11-16] MEDS: Ibuprofen 600 MG TABLET PO (01:39)
[2024-11-16 01:43] VITALS: BP 111/67; PULSE 72; RESP 20; TEMP 36.9; O2SAT 98
== END 2024-11-16 01:44 | disposition home or self-care (01) ==
PROVIDERS: Emergency Provider Internal Medicine
DX: S80.02XA Contusion of left knee, initial encounter (principal); M25.562 Pain in left knee; W10.9XXA Fall (on) (from) unspecified stairs and steps, initial encounter; Y93.9 Activity, unspecified; Y92.89 Other specified places as the place of occurrence of the external cause; Y99.8 Other external cause status
CPT/HCPCS: 73560; 99283; 99284

== ENCOUNTER 2024-12-14 23:38 | Emergency (ER) | payer SELFPAY ==
[2024-12-15 00:59] VITALS: BP 103/65; PULSE 70; RESP 18; TEMP 36.6; O2SAT 98; BMI 19.9
[2024-12-15 05:03] VITALS: BP 109/56; PULSE 57; RESP 16; TEMP 36.4; O2SAT 99
[2024-12-15 06:54] VITALS: BP 116/41; PULSE 51; RESP 18; TEMP 36.6; O2SAT 97
--- NOTE | 2024-12-15 07:23 | ED.EXTPRO ---
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 He reports initial injury 3 weeks ago working missed a step, causing him to fall and land on his left knee. He was subsequently evaluated in the ED with negative workup. Discharged with NSAIDs and ortho follow-up. He states that he was an appointment with the orthopedic team this Saturday (in 3 days) however was told to come back if his pain was not well controlled. Reports continued pain to the anterior aspect of his left knee, worse with movement/ ambulation. He has been taking Tylenol at home with minimal relief. No Motrin. Denies new injury/ trauma. Denies numbness/tingling/weakness of the LLE. Denies recent travel or long car rides. Denies calf pain, chest pain, sob, fever, chills. 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 Related Data Previous Rx's ?Medication ?Instructions ?Recorded cyclobenzaprine 10 mg tablet 10 mg PO TID PRN muscle spasm #14 04/24/22 tabs ibuprofen 600 mg tablet 600 mg PO Q6H PRN pain #30 tabs 04/24/22 lidocaine 4 % topical patch 1 patch topical DAILY PRN pain #10 04/24/22 ea cephalexin 500 mg capsule 500 mg PO QID 7 days #28 caps 07/31/22 ibuprofen 600 mg tablet 600 mg PO Q8H PRN pain #10 tabs 07/31/22 cephalexin 500 mg capsule 500 mg PO QID #28 caps 06/03/23 chlorhexidine gluconate 0.12 % 15 ml buccal BID #118 mL 07/07/23 mouthwash (Peridex) naproxen 500 mg tablet 500 mg PO BID 7 days #14 tabs 07/07/23 penicillin V potassium 500 mg 500 mg PO BID 10 days #20 tabs 07/07/23 tablet albuterol sulfate 90 mcg/actuation 2 puff inhalation QID PRN 12/05/23 aerosol inhaler shortness of breath or wheezing #6.7 grams amoxicillin 875 mg-potassium 1 tab PO BID #14 tabs 11/05/23 clavulanate 125 mg tablet cephalexin 500 mg capsule 500 mg PO BID #13 caps 12/29/23 ibuprofen 600 mg tablet 600 mg PO TID PRN fever or pain 12/29/23 #20 tabs prednisone 20 mg tablet 20 mg PO DAILY #5 tabs 12/29/23 diclofenac sodium 1 % topical gel 2 g topical QID #100 grams 07/14/24 (Arthritis Pain (diclofenac)) ibuprofen 600 mg tablet 600 mg PO Q6H PRN fever or pain 11/16/24 #30 tabs naproxen 500 mg tablet 500 mg PO Q12H PRN pain (scale 12/15/24 score 1-3) #20 tabs prednisone 20 mg tablet 40 mg (2 x 20 mg) PO DAILY 5 days 12/15/24 #10 tabs Allergies Allergy/AdvReac Type Severity Reaction Status Date / Time No Known Allergies Allergy Verified 12/15/24 01:00 Review of Systems Review of Systems: Constitutional: No fever, chills, fatigue, night sweats, weight changes ENT/Mouth: No ear pain, hearing loss, nasal congestion, sinus pain, rhinorrhea, sore throat Eyes: No eye pain, swelling, redness, vision changes, discharge Cardio: No chest pain, palpitations, KUO, orthopnea, peripheral edema Pulm: No SOB, cough, sputum, wheezing, dyspnea, hemoptysis GI: No nausea, vomiting, hematemesis, abdominal pain, diarrhea, constipation, hematochezia, melena : No irregular bleeding, dysuria, frequency, urgency, hesitancy, hematuria, flank pain, urinary flow changes, urinary incontinence or retention MSK: No back pain, neck pain, joint pain, myalgias, +left knee pain Skin: No lesions, rashes Neuro: No weakness, numbness, paresthesias, LOC, dizziness, headache Psych: No anxiety/panic, depression, SI/HI, AH/VH All other systems reviewed and are negative. [facility] Past Medical History Attestation statement: The following information was validated with the patient. Source: old records reviewed and nursing notes reviewed Medical History No pertinent past medical history COVID-19 Social History Social History Alcohol intake: current Alcohol intake frequency: holidays/special occasions only Alcohol type: hard liquor Patient Tobacco Use Status: Never used Tobacco Substance Use Type: Marijuana Advance Directives: No Advance Directives Information Provided: Yes Physical Exam Vital Signs: Vital Signs: Last Vital Signs Temp 97.8 F 12/15/24 06:54 Pulse 51 12/15/24 06:54 Resp 18 12/15/24 06:54 BP 116/41 L 12/15/24 06:54 Pulse Ox 97 12/15/24 06:54 O2 Del Method Room Air 12/15/24 06:54 BMI result Body Mass Index 19.9 Vital signs stable General: Well appearing, in no acute distress. Skin: Warm, dry, intact. No rashes or lesions. Head: Normocephalic, atraumatic. EENT: Hearing is intact b/l. Conjunctiva clear. PERRLA. EOM intact. Moist mucous membranes.? Neck: Supple without LAD Cardiac: Chest wall symmetric. RRR Lungs: Normal respiratory effort without accessory muscle use. CTA bilaterally Back: No midline spinous or paraspinal tenderness. No step off deformity. Ext: +no notable swelling/deformity/overlying skin changes to left knee. Able to flex and extend the knee with some pain on flexion. Patellar tendon intact. Slightly tender to palpation over anterior aspect of left knee without palpable deformity, crepitus, fluctuance. No calf tenderness. 2+ PT/DP pulse intact. Ambulating with slight limping gait. Neuro: AOx3. Normal speech. Ambulating with slight limping gait. Psych: Appropriate mood and affect. Responds appropriately to questions. Course Course Course Narrative: I reviewed x-ray of left knee taken on 11/16/2024. No notable fracture or effusion. Since there has been no injury or trauma since the initial injury, I do not feel as though repeat imaging is warranted at this time. He has appropriate follow-up in 3 days with the orthopedic team. At this time, will provide patient with a dose of Toradol in the ED for pain control. Knee immobilizer and crutches provided. Advised NSAIDs/prednisone over the next few days until follow up with ortho. patient feels this plan is reasonable. Patient has remained stable throughout ED visit today. Discussed worrisome signs and symptoms and when to return to the ED. All questions answered at this time. Patient is agreeable with disposition and stable for discharge. Medical Decision Making Medical Decision Making MDM Narrative: 49-year-old armenian speaking male with no significant past medical history presents to the ED today for evaluation of continued left knee pain x3 weeks. Vital signs stable. He is nontoxic-appearing and in no acute distress. Lying comfortably on the exam bed. Exam significant for no notable swelling/deformity/overlying skin changes to left knee. Able to flex and extend the knee with some pain on flexion. Patellar tendon intact. Slightly tender to palpation over anterior aspect of left knee without palpable deformity, crepitus, fluctuance. No calf tenderness. 2+ PT/DP pulse intact. Ambulating with slight limping gait. Differential diagnosis includes contusion, fracture, tendinitis, bursitis. unlikely septic joint, nv compromise, threat to limb, compartment syndrome. Plan for pain control, image review, and re-evaluation. Differential Diagnosis Differential Diagnoses: The differential diagnosis associated with the presentation includes As above Admission/Observation Not indicated Independent Interpretation I performed an independent interpretation of an: Plain X-Ray Interpretation: X-ray left knee without fracture. Radiology Impression Discussion of test interpretation with radiology: I have reviewed the radiologist's reading. Radiologist Impression: Ordering Physician: Vinicio Glez MD Date of Service: 11/16/24 Procedure(s): XR knee LT 2V Accession Number(s): [id number] cc: Physician,Unknown ; Vinicio Glez MD~ EXAMINATION: XR KNEE, LEFT CLINICAL INFORMATION: injury COMPARISON: None available. TECHNIQUE: Four views of the left knee. FINDINGS: Tibial plateau appears intact. No fractures or subluxations identified. No joint effusion noted. No pretibial soft tissue inflammatory changes. No soft tissue emphysematous changes noted. Incidental note made of a fabella XR/XR knee LT 2V IMPRESSION: Normal left knee. Electronically signed by: Ayo Mead MD 11/16/2024 01:27 AM [facility] External Record Review External record reviewed: Inpatient record, Office record, Outpatient record, Prior outpatient labs, Prior outpatient radiology, Primary care record and Outside ED record Prescription Management I considered prescription management with: Pain Medication (naproxen) and Other (prednisone) Social Determinants Patient?s care significantly limited by Social Determinants of Health including: Other Social Determinant of Health Procedures Orthopedic Splinting/Casting Injury #1: Side: left Lower Extremity Injury Location: knee Lower Extremity Immobilizer: knee immobilizer Other Orthopedic Equipment: crutches Critical Care Time Critical Care Time Critical Care Time: No Discharge Plan Discharge Clinical Impression: Left knee pain Patient Disposition: Home, Self-Care Instructions: Knee Pain (ED) Additional Instructions: You were evaluated in the ED today for your left knee pain. Since there has been no new injury, repeat x-rays are not warranted at this time. You were treated with an anti-inflammatory in the ED. You were provided with a knee immobilizer and crutches to utilize until you follow up with ortho this Saturday. I have sent naproxen, an anti-inflammatory pain medication, to your pharmacy. Take this as needed for pain. Do not take this with other NSAIDs such as Motrin as this can cause increased risk of GI bleeding. I have also sent prednisone, a steroid, to your pharmacy to help with inflammation. Take this as prescribed. Return to the ED with any new or worsening symptoms. In the case of an emergency call 911. Prescriptions: New naproxen 500 mg tablet 500 mg PO Q12H PRN (Reason: pain (scale score 1-3)) Qty: 20 0RF prednisone 20 mg tablet 40 mg PO DAILY 5 Days Qty: 10 0RF No Action cephalexin 500 mg capsule 500 mg PO QID 7 Days Qty: 28 0RF ibuprofen 600 mg tablet 600 mg PO Q8H PRN (Reason: pain) Qty: 10 0RF cyclobenzaprine 10 mg tablet 10 mg PO TID PRN (Reason: muscle spasm) Qty: 14 0RF lidocaine 4 % adhesive patch,medicated 1 patch topical DAILY PRN (Reason: pain) Qty: 10 0RF Rx Instructions: may leave on for up to 12 hrs ibuprofen 600 mg tablet 600 mg PO Q6H PRN (Reason: pain) Qty: 30 0RF cephalexin 500 mg capsule 500 mg PO QID Qty: 28 0RF albuterol sulfate 90 mcg/actuation HFA aerosol inhaler 2 puff inhalation QID PRN (Reason: shortness of breath or wheezing) Qty: 6.7 0RF amoxicillin-pot clavulanate 875-125 mg tablet 1 tab PO BID Qty: 14 0RF diclofenac sodium [Arthritis Pain (diclofenac)] 1 % gel 2 g topical QID Qty: 100 0RF Rx Instructions: apply to left foot ibuprofen 600 mg tablet 600 mg PO Q6H PRN (Reason: fever or pain) Qty: 30 0RF penicillin V potassium 500 mg tablet 500 mg PO BID 10 Days Qty: 20 0RF naproxen 500 mg tablet 500 mg PO BID 7 Days Qty: 14 0RF chlorhexidine gluconate [Peridex] 0.12 % mouthwash 15 ml buccal BID Qty: 118 0RF prednisone 20 mg tablet 20 mg PO DAILY Qty: 5 0RF ibuprofen 600 mg tablet 600 mg PO TID PRN (Reason: fever or pain) Qty: 20 0RF cephalexin 500 mg capsule 500 mg PO BID Qty: 13 0RF Stand Alone Forms: Work/School Release Print Language: Croatian
[2024-12-15] MEDS: Ketorolac Tromethamine 30 MG/ML VIAL IM (07:35)
--- NOTE | 2024-12-15 07:51 | PC.NURSE ---
medication administered prior to discharge. knee immobilizer applied to LLE. pt provided w/ crutch training by tech. pt tolerated well.
[2024-12-15 07:52] VITALS: BP 116/41; PULSE 51; RESP 18; TEMP 36.6; O2SAT 97
== END 2024-12-15 08:03 | disposition home or self-care (01) ==
PROVIDERS: Emergency Provider Emergency Medicine
DX: M25.562 Pain in left knee (principal)
CPT/HCPCS: 96372; 99283; 99284; J1885

== ENCOUNTER 2024-12-18 07:54 | Outpatient (REF) | payer SELFPAY ==
--- NOTE | ~2024-12-18 | XR_ITS ---
EXAMINATION: XR KNEE, LEFT CLINICAL INFORMATION: M25.562 - Pain in left knee COMPARISON: None available. TECHNIQUE: Two views of the left knee. FINDINGS: There is minimal loss of medial compartment joint space. The patellofemoral compartment joint space is preserved. No acute fracture or dislocation seen. There is no lytic process. XR/XR knee LT 2V IMPRESSION: Mild loss of medial compartment joint space left knee. No visible acute fracture or dislocation. Electronically signed by: Heraclio Negrete MD 12/21/2024 09:29 AM [facility]
--- NOTE | ~2024-12-18 | XR_ITS ---
EXAMINATION: XR KNEE, RIGHT CLINICAL INFORMATION: M25.561 - Pain in right knee COMPARISON: None available. TECHNIQUE: 1 view AP right knee standing. FINDINGS: There is minimal loss of medial compartment joint space. The lateral knee joint spaces preserved. The soft tissues are normal. XR/XR knee RT 1V IMPRESSION: Mild reduction in medial compartment joint space right knee. No visible acute fracture or dislocation. Electronically signed by: Heraclio Negrete MD 12/21/2024 09:36 AM [facility]
== END 2024-12-18 07:55 | disposition home or self-care (01) ==
LOC: HO.HOSX 07:54
PROVIDERS: Visit Provider Physician Assistant
DX: M25.561 Pain in right knee (principal); M25.562 Pain in left knee; M22.42 Chondromalacia patellae, left knee
CPT/HCPCS: 73560; 99202

== ENCOUNTER 2024-12-18 08:28 | Outpatient (AMB) | payer SELFPAY ==
--- NOTE | 2024-12-18 08:39 | MHC.OFFVIS ---
Vital Signs 12/18/24 08:47 Height 5 ft 9 in Weight 135 lb BMI 19.9 Intake Visit Reasons: ED f/u Contusion of left knee Intake Note: Levon is a 49 year old male who presents today for an ER follow up of injury to left knee, DOI 11/16/24. Patient reports that he fell down the stairs landing on his left knee. He presented to [facility] same day where x-rays were taken and placed in a knee immobilizer. He returned back on 12/15/24 due to intolerable pain. Currently he has constant pain located at the anterior aspect of knee. Numbness and tingling in his toes. Finds no relief with ibuprofen. Digital Field Service Technician Required: Yes Digital Field Service Technician Services: Digital Field Service Technician Present Digital Field Service Technician Name: Darling ID#[id number] Allergies No Known Allergies Allergy (Verified 12/18/24 08:44) Medication List - Last Reconciled 12/18/24 by Michael Negron PA-C albuterol sulfate 90 mcg/actuation 2 puffs inhalation QID PRN ibuprofen 600 mg PO TID PRN prednisone 40 mg (2 x 20 mg) PO DAILY 5 days HPI HPI ED f/u Contusion of left knee: Details: 49-year-old gentleman presents to the office today for pain in the left knee. He states on 11/16 he fell landing on the left knee. He was seen in the emergency department where x-rays were obtained. Negative for fractures. He was placed in a knee immobilizer and referred to our office for ortho eval. In the meantime on 12/15 he was seen back in the ER for increased pain, he was given a prescription for prednisone and naproxen. He states he has been wearing the knee immobilizer in takes it off when resting and showering. [facility] Medical History (Updated 12/18/24 @ 08:59 by Michael Negron PA-C) No pertinent past medical history COVID-19 Surgical History (Updated 12/18/24 @ 08:46 by VALERIO Stanton) History of toe surgery Social History (Updated 12/18/24 @ 08:46 by VALERIO Stanton) Alcohol intake: current Alcohol intake frequency: holidays/special occasions only Alcohol type: hard liquor Patient Tobacco Use Status: Current everyday Tobacco user Substance Use Type: Marijuana Review of Systems Const All systems reviewed & are unremarkable except as noted in HPI and below Physical Exam Vital Signs: BMI result Body Mass Index 19.9 Const General: cooperative and no acute distress Orientation/consciousness: patient oriented x3 Resp Effort & Inspection: normal respiratory effort and able to speak in complete sentences Cardio Peripheral pulses: Peripheral pulses 2+ throughout Neuro General: patient oriented x3 Extrem Other: Left knee normal to inspection. No joint effusion. He is able to flex to 95 degrees and extend the leg. No deformity along the quad or patellar tendon. Discomfort with palpation around the retropatellar region and patella grind. Positive Kris's medially. Calf supple nontender neurovascularly intact. Results Reviewed Results Reviewed: X-rays of the left knee obtained in the office today are negative for acute or chronic abnormalities. Assessment & Plan Assessment & Plan (1) Chondromalacia patellae, left knee: Code(s): M22.42 - Chondromalacia patellae, left knee Category: Medical Plan We discussed options today which include physical therapy to work on range of motion quad and glute hamstring strengthening exercises. He was also fit for a Genumed knee brace for stability. If symptoms persist or worsen he can contact our office in order an MRI of the left knee otherwise he will follow-up as needed. Orders: Orders XR knee RT 1V Today M25.561 - Pain in right knee XR knee LT 2V Today M25.562 - Pain in left knee PT Evaluation and Treatment Today M22.42 - Chondromalacia patellae, left knee Medications: New ibuprofen 800 mg PO Q8H PRN 90 tabs 3RF pain 30 days Discontinued ibuprofen Discontinued Reason: Patient no longer taking 600 mg PO Q6H PRN 30 tabs 0RF pain lidocaine 4% may leave on for up to 12 hrs Discontinued Reason: Patient no longer taking 1 patch topical DAILY PRN 10 ea 0RF pain cyclobenzaprine Discontinued Reason: Patient no longer taking 10 mg PO TID PRN 14 tabs 0RF muscle spasm cephalexin Discontinued Reason: Patient no longer taking 500 mg PO QID 7 days 28 caps 0RF ibuprofen Discontinued Reason: Patient no longer taking 600 mg PO Q8H PRN 10 tabs 0RF pain amoxicillin-pot clavulanate 875-125 mg Discontinued Reason: Patient no longer taking 1 tab PO BID 14 tabs 0RF prednisone Discontinued Reason: Patient no longer taking 20 mg PO DAILY 5 tabs 0RF naproxen Discontinued Reason: Patient no longer taking 500 mg PO Q12H PRN 20 tabs 0RF pain (scale score 1-3) cephalexin Discontinued Reason: Patient no longer taking 500 mg PO QID 28 caps 0RF chlorhexidine gluconate 0.12% (Peridex) Discontinued Reason: Patient no longer taking 15 mL buccal BID 118 mL 0RF naproxen Discontinued Reason: Patient no longer taking 500 mg PO BID 7 days 14 tabs 0RF penicillin V potassium Discontinued Reason: Patient no longer taking 500 mg PO BID 10 days 20 tabs 0RF cephalexin Discontinued Reason: Patient no longer taking 500 mg PO BID 13 caps 0RF ibuprofen Discontinued Reason: Doctor's Order 600 mg PO TID PRN 20 tabs 0RF fever or pain diclofenac sodium 1% (Arthritis Pain (diclofenac)) apply to left foot Discontinued Reason: Patient no longer taking 2 grams topical QID 100 grams 0RF ibuprofen Discontinued Reason: Patient no longer taking 600 mg PO Q6H PRN 30 tabs 0RF fever or pain Coding Level of Care Code New Pt Level 3 (28852) Complex EM visit Add On G2211 Diagnoses Chondromalacia patellae, left knee M22.42
[2024-12-18 08:47] VITALS: BMI 19.9
== END 2024-12-18 09:12 | disposition home or self-care (01) ==
PROVIDERS: Visit Provider Physician Assistant
DX: M22.42 Chondromalacia patellae, left knee (principal)
CPT/HCPCS: 99203; G2211

== ENCOUNTER 2025-01-18 12:57 | Emergency (ER) | payer MEDICAID, SELFPAY ==
[2025-01-18 13:13] VITALS: BP 115/44; PULSE 72; RESP 19; TEMP 36.6; O2SAT 99; BMI 25.8
--- NOTE | 2025-01-18 13:19 | ED_ITS ---
HPI - Extremity Injury (Lower) General Chief Complaint: Extremity Injury, Lower Stated Complaint: L Knee Pain Time Seen by Provider: 01/18/25 13:24 Source: patient and RN notes reviewed Mode of arrival: ambulatory Limitations: no limitations History of Present Illness ED Provider: Vandana Garrison PA-C HPI Narrative: This is a 49-year-old male, with a history of chondromalacia of the left knee, who presents emergency department with concerns for ongoing left knee pain. Patient was initially seen November 16, 2024 after a fall, he was evaluated here in the emergency department. He then returned again on December 15 and was placed in a knee immobilizer and crutches and advised to follow-up with the orthopedic team. He was then seen by the orthopedist on December 18 where he was diagnosed with chondromalacia of the left knee, he was fit for a knee brace for stability, he also was advised to start physical therapy which he has been waiting for an appointment for,. He is not told the orthopedic team that he continues to have severe left knee pain. He states that he has been on being able to work secondary to the pain. He has been taking ibuprofen for his symptoms which has provided him with some relief. No new injury or trauma. He is ambulatory. MD complaint: knee injury Exacerbating factors: weight bearing, movement and palpation Context: fall Other symptoms: none Related Data Previous Rx's ?Medication ?Instructions ?Recorded albuterol sulfate 90 mcg/actuation 2 puff inhalation QID PRN 11/05/23 aerosol inhaler shortness of breath or wheezing #6.7 grams prednisone 20 mg tablet 40 mg (2 x 20 mg) PO DAILY 5 days 12/15/24 #10 tabs ibuprofen 800 mg tablet 800 mg PO Q8H PRN pain 30 days #90 12/18/24 tabs acetaminophen 500 mg tablet 1,000 mg (2 x 500 mg) PO QID PRN 01/18/25 (Tylenol Extra Strength) pain #30 tabs naproxen 500 mg tablet 500 mg PO BID 21 days #42 tabs 01/18/25 Allergies Allergy/AdvReac Type Severity Reaction Status Date / Time No Known Allergies Allergy Verified 01/18/25 13:15 Review of Systems Review of Systems: Yes all other systems are reviewed and are negative PMFSH Past Medical History Medical History (Updated 02/17/25 @ 13:21 by REX Peter) No pertinent past medical history COVID-19 Surgical History (Updated 12/18/24 @ 08:46 by VALERIO Stanton) History of toe surgery Social History Social History (Updated 12/18/24 @ 08:46 by VALERIO Stanton) Alcohol intake: current Alcohol intake frequency: holidays/special occasions only Alcohol type: hard liquor Patient Tobacco Use Status: Current everyday Tobacco user Substance Use Type: Marijuana Do you have a plan to hurt others: No Plan Physical Exam Vital Signs: Vital Signs: Last Vital Signs Temp 98 F 01/18/25 13:13 Pulse 72 01/18/25 13:13 Resp 19 01/18/25 13:13 BP 115/44 L 01/18/25 13:13 Pulse Ox 99 01/18/25 13:13 O2 Del Method Room Air 01/18/25 13:13 BMI result Body Mass Index 25.8 Const: Other: General: Awake, alert, and oriented X3. No acute distress. HEENT: Normal inspection CVS: Normal heart rate and rhythm. Pulses normal. Respiratory: No respiratory distress Skin: Warm, dry, no rashes noted to exposed skin. Normal skin color. Normal skin turgor. Extremities: Left knee with no obvious bony deformity or swelling. No overl nuria erythema or warmth. He has tenderness palpation along the medial and lateral joint line. He is able to flex to 90?, also able to extend the knee. No deformity along the quadrant patellar tendon. No calf tenderness, no pitting edema. Neuro: Oriented X 3. No motor deficit. No sensory deficit. Medical Decision Making Medical Decision Making MDM Narrative: This is a 49-year-old male who presents emergency department with complaints of left knee pain. Patient has had ongoing left knee pain since November. He has been seen in the emergency department twice, and is also followed up with orthopedist. He was diagnosed with chondromalacia of the left knee. He was advised that physical therapy can be beneficial which he has not started. He also was advised to contact the office if he has worsening pain, he was unable to do so due to the holiday. Patient has been taking ibuprofen. Given no new injury, repeat x-rays not warranted at this time. Knee is nonerythematous, nonedematous, he has tenderness palpation diffusely, more tender along the medial and lateral joint line. Patient is ambulatory with steady gait. Advised to call the orthopedist office tomorrow. Will discharge on naproxen, advised to not take ibuprofen in combination with naproxen, will also give Tylenol. Given strict return precautions. Patient understands and agrees with plan. Patient stable for discharge Differential Diagnosis Differential Diagnoses: The differential diagnosis associated with the presentation includes Contusion, fracture, tendonitis, bursitis, unlikely septic joint, compartment syndrome - unlikely. All compartments are soft. He has no calf tenderness to suggest DVT. Radiology Impression Radiologist Impression: X-ray of the left knee from December 18 revealing mild loss of medial compartment joint space of the left knee. Discharge Plan Discharge Clinical Impression: Chondromalacia patellae, left knee, Chronic knee pain Patient Disposition: Home, Self-Care Instructions: Knee Pain (ED), Arthralgia (ED) Additional Instructions: You were seen in the emergency department due to ongoing left knee pain. You need to follow-up with the retail selling specialist, call tomorrow to make an appointment. Take naproxen as prescribed, do not take this with ibuprofen. You may also take Tylenol. If any new or worsening symptoms occur including but not limited to chest pain or shortness for breath, or increased redness or swelling to your knee, please seek emergent care. Prescriptions: New naproxen 500 mg tablet 500 mg PO BID 21 Days Qty: 42 0RF acetaminophen [Tylenol Extra Strength] 500 mg tablet 1,000 mg PO QID PRN (Reason: pain) Qty: 30 0RF No Action albuterol sulfate 90 mcg/actuation HFA aerosol inhaler 2 puff inhalation QID PRN (Reason: shortness of breath or wheezing) Qty: 6.7 0RF prednisone 20 mg tablet 40 mg PO DAILY 5 Days Qty: 10 0RF ibuprofen 800 mg tablet 800 mg PO Q8H PRN (Reason: pain) 30 Days Qty: 90 3RF Referrals: [facility] [Provider Group] Stand Alone Forms: Work/School Release Print Language: Mauritanian
== END 2025-01-18 14:41 | disposition home or self-care (01) ==
PROVIDERS: Emergency Provider Emergency Medicine
DX: M94.262 Chondromalacia, left knee (principal); M25.562 Pain in left knee; F17.210 Nicotine dependence, cigarettes, uncomplicated
CPT/HCPCS: 99281; 99283

== ENCOUNTER 2025-02-28 03:15 | Emergency (ER) | payer OTHER, SELFPAY ==
--- NOTE | ~2025-02-28 | XR_ITS ---
CLINICAL HISTORY: pain and swelling 4 view left knee Comparison: DX/SR - XR KNEE LT 2V - 12/18/24 08:33 EST Findings: No fractures or dislocations. No significant arthritic change or erosions. No joint effusion. No radiopaque foreign body. Anterior soft tissue swelling. IMPRESSION: 1. No acute fracture. This document has been electronically signed by: Montrell Suresh MD on 02/28/2025 04:03:58
[2025-02-28 03:17] VITALS: BP 134/47; PULSE 60; RESP 16; TEMP 36.4; O2SAT 98; BMI 21.8
--- NOTE | 2025-02-28 04:19 | ED_ITS ---
HPI - Extremity Problem General Chief complaint: Extremity Problem Stated complaint: left knee pain Time Seen by Provider: 02/28/25 03:54 Source: patient Mode of arrival: ambulatory Limitations: language barrier History of Present Illness ED Provider: Dr. Vick Gamboa HPI Narrative: 49-year-old male, with a history of chondromalacia of the left knee, who presents emergency department with concerns for ongoing left knee pain. Patient states that he fell in December and injured his knee and since that time he has been having pain. Patient was had multiple visits here in the emergency department for left knee pain. The patient states that the pain is a constant, sharp pain which is worse with movement and worse if he pushes on his kneecap. Patient denies any recent injury. He states he was taking ibuprofen but ran out of this medication. Related Data Previous Rx's ?Medication ?Instructions ?Recorded albuterol sulfate 90 mcg/actuation 2 puff inhalation QID PRN 11/05/23 aerosol inhaler shortness of breath or wheezing #6.7 grams prednisone 20 mg tablet 40 mg (2 x 20 mg) PO DAILY 5 days 12/15/24 #10 tabs ibuprofen 800 mg tablet 800 mg PO Q8H PRN pain 30 days #90 12/18/24 tabs acetaminophen 500 mg tablet 1,000 mg (2 x 500 mg) PO QID PRN 01/18/25 (Tylenol Extra Strength) pain #30 tabs naproxen 500 mg tablet 500 mg PO BID 21 days #42 tabs 01/18/25 cyclobenzaprine 10 mg tablet 10 mg PO TID PRN pain, muscle 02/28/25 spasm #15 tabs ibuprofen 400 mg tablet 400 mg PO TID PRN fever or pain 02/28/25 #30 tabs Allergies Allergy/AdvReac Type Severity Reaction Status Date / Time No Known Allergies Allergy Verified 02/28/25 03:20 [facility] Past Medical History Medical History (Updated 02/28/25 @ 04:29 by Vick Gamboa MD) No pertinent past medical history COVID-19 Surgical History (Updated 12/18/24 @ 08:46 by VALERIO tSanton) History of toe surgery Social History Social History (Updated 12/18/24 @ 08:46 by VALERIO Stanton) Alcohol intake: current Alcohol intake frequency: holidays/special occasions only Alcohol type: hard liquor Patient Tobacco Use Status: Current everyday Tobacco user Substance Use Type: Marijuana Advance Directives: No Advance Directives Information Provided: Yes Do you have a plan to hurt others: No Plan Physical Exam Vital Signs: Vital Signs: Last Vital Signs Temp 97.6 F 02/28/25 03:17 Pulse 60 02/28/25 03:17 Resp 16 02/28/25 03:17 BP 134/47 L 02/28/25 03:17 Pulse Ox 98 02/28/25 03:17 O2 Del Method Room Air 02/28/25 03:17 BMI result Body Mass Index 21.8 Vital signs were normal Exam: Left knee exam: There is no joint effusion, no increased warmth or erythema over the skin of the knee joint, the patient was have pain with flexion and extension. He also has pain with movement of his patella. Medical Decision Making Medical Decision Making MDM Narrative: 49-year-old male, with a history of chondromalacia of the left knee, who presents emergency department with concerns for ongoing left knee pain. Patient states that he fell in December and injured his knee and since that time he has been having pain. Patient was had multiple visits here in the emergency department for left knee pain. The patient states that the pain is a constant, sharp pain which is worse with movement and worse if he pushes on his kneecap. Patient denies any recent injury. He states he was taking ibuprofen but ran out of this medication. Differential diagnosis: ?Includes but is not limited to left knee fracture, sprain, strain, chondromalacia, chronic pain Course: Patient's physical examination did reveal pain with flexion-extension of the left knee and palpation over the patella. There is no evidence for cellulitis or joint effusion/septic arthritis. X-rays did not reveal any acute fractures. Patient was given a prescription for ibuprofen 400 mg 3 times a day as needed for pain, Flexeril 10 mg 3 times a day as needed for pain or spasm. He was given his 1st dose of ibuprofen 400 mg and Flexeril 10 mg orally here in the emergency department. He was given printed and verbal instructions and discharged home. Admission/Observation Consideration of admission/observation: Escalation of care including admission/observation considered (No) Independent Interpretation I performed an independent interpretation of an: Plain X-Ray Interpretation: My interpretation patient's left knee x-ray is as follows: No acute fracture seen Radiology Impression Discussion of test interpretation with radiology: I have reviewed the radiologist's reading. Radiologist Impression: 4 view left knee Comparison: DX/SR - XR KNEE LT 2V - 12/18/24 08:33 EST Findings: No fractures or dislocations. No significant arthritic change or erosions. No joint effusion. No radiopaque foreign body. Anterior soft tissue swelling. IMPRESSION: 1. No acute fracture. This document has been electronically signed by: Montrell Suresh MD on 02/28/2025 04:03:58 Prescription Management I considered prescription management with: Pain Medication (NSAID: Ibuprofen) and Other (Anti spasmodic: Flexeril) Discharge Plan Discharge Clinical Impression: Acute pain of left knee Patient Disposition: Home, Self-Care Additional Instructions: Take ibuprofen 400 mg pills, 1 pills every 6 hours as needed for pain or fever. Take Flexeril (cyclobenzaprine) 10 mg pills, 1 pill every 6-8 hours as needed for pain or spasm. ?This medication will make you sleepy. ?Do not drive or work while taking this medication. Follow-up with your doctor in 2 days. Please return to the emergency department if your symptoms get worse or if you develop any symptoms that are concerning to you. Prescriptions: New cyclobenzaprine 10 mg tablet 10 mg PO TID PRN (Reason: pain, muscle spasm) Qty: 15 0RF ibuprofen 400 mg tablet 400 mg PO TID PRN (Reason: fever or pain) Qty: 30 0RF No Action albuterol sulfate 90 mcg/actuation HFA aerosol inhaler 2 puff inhalation QID PRN (Reason: shortness of breath or wheezing) Qty: 6.7 0RF prednisone 20 mg tablet 40 mg PO DAILY 5 Days Qty: 10 0RF naproxen 500 mg tablet 500 mg PO BID 21 Days Qty: 42 0RF acetaminophen [Tylenol Extra Strength] 500 mg tablet 1,000 mg PO QID PRN (Reason: pain) Qty: 30 0RF ibuprofen 800 mg tablet 800 mg PO Q8H PRN (Reason: pain) 30 Days Qty: 90 3RF Print Language: Maltese
[2025-02-28 04:41] VITALS: BP 113/51; PULSE 54; RESP 16; TEMP 36.4; O2SAT 99
[2025-02-28] MEDS: Cyclobenzaprine HCl 10 MG TABLET PO (04:42)
[2025-02-28] MEDS: Ibuprofen 400 MG TABLET PO (04:42)
--- NOTE | 2025-02-28 04:44 | PC.NURSE ---
provider into discuss results and plan of care, reviewed discharge instructions with pt. pt verbalized understanding no sign of distress, pt did have a steady gait.
[2025-02-28 04:47] VITALS: BP 113/51; PULSE 54; RESP 16; TEMP 36.4; O2SAT 99
== END 2025-02-28 04:48 | disposition home or self-care (01) ==
PROVIDERS: Emergency Provider Emergency Medicine Emergency Medical Services
DX: M25.562 Pain in left knee (principal)
CPT/HCPCS: 73564; 99283; 99284

== ENCOUNTER → 2025-02-28 03:30 | Outpatient (BNV) | payer OTHER, SELFPAY | PROVIDERS: Emergency Provider Emergency Medicine Emergency Medical Services; Visit Provider Radiology Diagnostic Radiology | DX: M25.562 Pain in left knee (principal) | CPT/HCPCS: 73564 ==

== ENCOUNTER 2025-03-06 03:32 | Emergency (ER) | payer OTHER, SELFPAY ==
[2025-03-06 03:37] VITALS: BP 103/63; PULSE 66; RESP 18; TEMP 36.6; O2SAT 98; BMI 25.8
--- NOTE | 2025-03-06 04:35 | ED.EXTPRO ---
HPI - Extremity Problem General Chief complaint: Extremity Problem Stated complaint: knee pain Time Seen by Provider: 03/06/25 04:17 Source: patient Mode of arrival: ambulatory Limitations: no limitations History of Present Illness ED Provider: Dr. Wanda Rivas HPI Narrative: Patient comes to the emergency room complaining of chronic left knee pain. Patient has been already evaluated by orthopedics. Last time that the patient was seen by Orthopedics was December 18. Patient has had multiple subsequent ED visits in the emergency room complaining of pain in the left knee. Patient has not had any recurrent injuries. Related Data Previous Rx's ?Medication ?Instructions ?Recorded albuterol sulfate 90 mcg/actuation 2 puff inhalation QID PRN 11/05/23 aerosol inhaler shortness of breath or wheezing #6.7 grams prednisone 20 mg tablet 40 mg (2 x 20 mg) PO DAILY 5 days 12/15/24 #10 tabs ibuprofen 800 mg tablet 800 mg PO Q8H PRN pain 30 days #90 12/18/24 tabs acetaminophen 500 mg tablet 1,000 mg (2 x 500 mg) PO QID PRN 01/18/25 (Tylenol Extra Strength) pain #30 tabs naproxen 500 mg tablet 500 mg PO BID 21 days #42 tabs 01/18/25 cyclobenzaprine 10 mg tablet 10 mg PO TID PRN pain, muscle 02/28/25 spasm #15 tabs ibuprofen 400 mg tablet 400 mg PO TID PRN fever or pain 02/28/25 #30 tabs acetaminophen 500 mg tablet 500 mg PO Q6H PRN fever or pain 03/06/25 #30 tabs tramadol 50 mg tablet 50 mg PO BID PRN pain #6 tabs 03/06/25 Allergies Allergy/AdvReac Type Severity Reaction Status Date / Time No Known Allergies Allergy Verified 03/06/25 03:42 Review of Systems Review of Systems: Constitutional : No Weight loss, No Fever, No Chills, No Night Sweats, No Fatigue, No Malaise ENT/Mouth : No Hearing loss, No Ear Pain, No Nasal Congestion, No Sinus Pain, No Hoarseness, No sore throat, No Rhinorrhea, No Swallowing Difficulty Eyes: No Eye Pain, No Swelling, No Redness, No Foreign Body, No Discharge, No Vision Changes Cardiovascular : No Chest Pain, No SOB, No Dyspnea on Exertion, No Orthopnea, No Edema, No Palpitations Respiratory : No Cough, No Sputum, No Wheezing, No Smoke Exposure, No Dyspnea Gastrointestinal : No Nausea, No Vomiting, No Diarrhea, No Constipation, No abdominal Pain, No Hematochezia, No Melena Genitourinary : no irregular bleeding, No Dysuria, No Urinary Frequency, No Hematuria, No Urinary Incontinence, No Urgency, No Flank Pain, No Urinary Flow Changes, No Hesitancy Musculoskeletal : Complaining of left knee pain chronically, No Myalgias, No Joint Swelling Skin : No Skin Lesions, No rash Neuro : No Weakness, No Numbness, No Paresthesias, No Loss of Consciousness, No Dizziness, No Headache Psych : No Anxiety/Panic, No Depression, No SI/HI/AH/VH, No Social Issues, Heme/Lymph: No Bruising, No Bleeding,No Lymphadenopathy Endocrine : No Polyuria, No Polydipsia, No Temperature Intolerance PMF Past Medical History Medical History No pertinent past medical history COVID-19 Surgical History (Updated 12/18/24 @ 08:46 by VALERIO Stanton) History of toe surgery Social History Social History (Updated 12/18/24 @ 08:46 by VALERIO Stanton) Alcohol intake: current Alcohol intake frequency: holidays/special occasions only Alcohol type: hard liquor Patient Tobacco Use Status: Current everyday Tobacco user Substance Use Type: Marijuana Advance Directives: No Advance Directives Information Provided: Yes Physical Exam Vital Signs: Vital Signs: Last Vital Signs Temp 97.8 F 03/06/25 03:37 Pulse 66 03/06/25 03:37 Resp 18 03/06/25 03:37 BP 103/63 03/06/25 03:37 Pulse Ox 98 03/06/25 03:37 O2 Del Method Room Air 03/06/25 03:37 BMI result Body Mass Index 25.8 Const: Other: Appearance: Alert. Oriented X3. No acute distress. Eyes: Pupils equal, round and reactive to light. ENT: Pharynx normal. Neck: Normal inspection. Neck supple. No lymph nodes noted. No crepitus CVS: Normal heart rate and rhythm. Pulses normal. Normal S1 and S2 Respiratory: No respiratory distress. Breath sounds normal. No Wheezing. No rales Abdomen: Soft and nontender. No rigidity. No distention. Skin: Skin warm and dry. Normal skin color. Normal skin turgor. Extremities: No lower extremity edema. No Lacerations. No Rash, able to flex and extend the knee, no knee effusion, no erythema, no pain to palpation over the posterior lateral or patellar aspect. Neuro: Oriented X 3. No motor deficit. No sensory deficit. Moving all extremities. No slurred speech. CN 2 through 12 grossly intact Psych: calm, cooperative, normal affect Medical Decision Making Medical Decision Making MDM Narrative: I reviewed patient's Orthopedics notes from 12/18/2024 We discussed options today which include physical therapy to work on range of motion quad and glute hamstring strengthening exercises. He was also fit for a Genumed knee brace for stability. If symptoms persist or worsen he can contact our office in order an MRI of the left knee otherwise he will follow-up as needed Patient states that the medications that they have been giving him for pain is not working, patient was given a dose of tramadol and patient was instructed to follow-up with orthopedics as instructed per Orthopedics At this time, x-rays would not be of any benefit at this time, there are no new injuries, patient needs an MRI Patient agrees with plan Discharge Plan Discharge Clinical Impression: Chronic knee pain Patient Disposition: Home, Self-Care Instructions: Knee Pain (ED) Additional Instructions: Please follow-up with your primary care physician tomorrow. If you have any worsening or new symptoms, please return to the emergency room or call 911 Prescriptions: New tramadol 50 mg tablet 50 mg PO BID PRN (Reason: pain) Qty: 6 0RF acetaminophen 500 mg tablet 500 mg PO Q6H PRN (Reason: fever or pain) Qty: 30 0RF No Action albuterol sulfate 90 mcg/actuation HFA aerosol inhaler 2 puff inhalation QID PRN (Reason: shortness of breath or wheezing) Qty: 6.7 0RF prednisone 20 mg tablet 40 mg PO DAILY 5 Days Qty: 10 0RF naproxen 500 mg tablet 500 mg PO BID 21 Days Qty: 42 0RF acetaminophen [Tylenol Extra Strength] 500 mg tablet 1,000 mg PO QID PRN (Reason: pain) Qty: 30 0RF cyclobenzaprine 10 mg tablet 10 mg PO TID PRN (Reason: pain, muscle spasm) Qty: 15 0RF ibuprofen 400 mg tablet 400 mg PO TID PRN (Reason: fever or pain) Qty: 30 0RF ibuprofen 800 mg tablet 800 mg PO Q8H PRN (Reason: pain) 30 Days Qty: 90 3RF Referrals: Michael Negron PA-C [Physician Prosthetist] - 03/08/25 Print Language: Hebrew
--- OUTSIDE RECORDS SUMMARY | 2025-03-06 04:35 | XMS_ITS | Clinical Summary ---
Author Organization [facility] ity Address [address] [place] [address] Care Team Providers Care Soil Analyst Name Role Phone Unavailable Primary Care Provider Unavailabl e Social History Tobacco Use Types Packs/Day Years Used Date Smoking Tobacco: Never Assessed Sex and Gender Information Value Date Recorded Sex Assigned at Not on file Legal Sex Male 1:55 PM EST Gender Identity Not on file Sexual Orientation Not on file Plan of Treatment Health Maintenance Due Date Last Done Comments DTaP,Tdap,and Td Vaccines (1 - Tdap) 1995 Hepatitis B Vaccines (1 of 3 - 19+ 3-dose series) 1995 Cholesterol Screening (Lipid Panel) 07/27/2024 Colorectal Cancer Screening: Colonoscopy 07/27/2024 Depression Screening 07/27/2024 HIV Screening 07/27/2024 Hepatitis C Screening 07/27/2024 Social Influencers of Health Screening 07/27/2024 COVID-19 Vaccine (2023-2 5 season) 2024 Influenza Vaccine (#1) 2024 HIB Vaccines Aged Out No longer eligi ble based on patient's age to complete this topic HPV Vaccines Aged Out No longer eligi ble based on patient's age to complete this topic Hepatitis A Vaccines Aged Out No long er eligible based on patient's age to complete this topic IPV Vaccines Aged Out No longer eligi ble based on patient's age to complete this topic MMR Vaccines Aged Out No longer eligi ble based on patient's age to complete this topic Meningococcal ACWY Vaccine Aged Out N o longer eligible based on patient's age to complete this topic Meningococcal B Vacine Aged Out No lo nger eligible based on patient's age to complete this topic Pneumococcal Vaccine: Pediat rics (0 to 5 Years) and At-Risk Patients (6 to 64 Years) Aged Out No longer eligible b ased on patient's age to complete this topic RSV Immunization Patients Un mali 20 months Aged Out No longer eligible b ased on patient's age to complete this topic Varicella Vaccines Aged Out No longer eligible based on patient's age to complete this topic
[2025-03-06] MEDS: traMADoL HCL 50 MG TABLET PO (04:51)
[2025-03-06 05:08] VITALS: BP 103/63; PULSE 66; RESP 18; TEMP 36.6; O2SAT 98
== END 2025-03-06 05:09 | disposition home or self-care (01) ==
PROVIDERS: Emergency Provider Emergency Medicine
DX: G89.29 Other chronic pain (principal); M25.562 Pain in left knee; F17.200 Nicotine dependence, unspecified, uncomplicated; F12.90 Cannabis use, unspecified, uncomplicated; Z79.899 Other long term (current) drug therapy
CPT/HCPCS: 99283; 99284